=== PATIENT | female | born 1960 | race Caucasian/White ===

== ENCOUNTER 2016-11-05 13:18 | Emergency (ER) | payer MEDICARE ==
--- NOTE | 2016-11-05 14:36 | UC ---
Eye Complaint HPI - HPI Summary HPI Summary: 55 YEAR OLD FEMALE PRESENTS WITH COMPLAINS OF RIGHT EYELID REDNESS/SWELLING. - History of Current Complaint Chief Complaint: UCEye Stated Complaint: EYE COMPLAINT-RED/DISCHARGE Time Seen by Provider: 11/05/16 14:30 Hx Last Menstrual Period: No menese per caregiver Onset/Duration: Sudden Onset - Allergies/Home Medications Allergies/Adverse Reactions: Allergies Allergy/AdvReac Type Severity Reaction Status Date / Time No Known Allergies Allergy Verified 11/05/16 14:24 Home Medications: Home Medications Baclofen TAB* [Lioresal TAB*] 15 mg PO BEDTIME 11/05/16 [History Confirmed 11/05] Chlorhexidine MW 0.12% 473ML* [Peridex Mouth Wash 0.12%] 1 applic PO DAILY 11/05 [History Confirmed 11/05/16] Haloperidol TAB* [Haldol TAB*] 1 tab PO DAILY 11/05/16 [History Confirmed ] Ipratropium 0.5MG/2.5ML NEB* [Atrovent 0.5 MG NEB.SHENG*] 1 neb INH DAILY PRN 06/23 [History Confirmed 11/05/16] Ipratropium [place] (Nasal) [Ipratropium [place]] 1 spray NASAL TID 11/05/16 [ History Confirmed 11/05/16] PMH/Surg Hx/FS Hx/Imm Hx - Surgical History Surgical History: None - Social History Alcohol Use: None Substance Use Type: None Smoking Status (MU): Never Smoked Tobacco - Immunization History Most Recent Influenza Vaccination: unknown Most Recent Tetanus Shot: unknown Most Recent Pneumonia Vaccination: unknown Review of Systems Constitutional: Negative Skin: Negative Eyes: Eye Redness ENT: Negative Respiratory: Negative Cardiovascular: Negative Gastrointestinal: Negative Genitourinary: Negative Motor: Negative Neurovascular: Negative Musculoskeletal: Negative Neurological: Negative Psychological: Negative All Other Systems Reviewed And Are Negative: Yes Physical Exam Triage Information Reviewed: Yes Eyes: Positive: Conjunctiva Inflamed, Other: - RIGHT EYE UPPER/LOWER LID BLEPHARITIS ENT Exam: Normal Dental Exam: Normal Neck exam: Normal Neck: Positive: 1 Respiratory Exam: Normal Cardiovascular Exam: Normal Abdominal Exam: Normal Musculoskeletal Exam: Normal Neurological Exam: Normal Psychological Exam: Normal Skin Exam: Normal Eye Complaint Course/Dx - Differential Dx/Diagnosis Provider Diagnoses: BLEPHARITIS Discharge - Discharge Plan Condition: Stable Disposition: HOME Prescriptions: Erythromycin (Ophth) [Ilotycin] 5 mg OP Q4HR #1 oin Polymyx/Trimethoprim OPTH* [Polytrim OPHTH*] 1 drop RIGHT EYE Q3H #1 btl Patient Education Materials: Blepharitis (ED) Referrals: Marisol Zuluaga MD [Medical Doctor] -
[2016-11-05] MEDS ORDERED: Polymyx/Trimethoprim OPTH* 10 ML BTL RIGHT EYE ONE (14:57)
[2016-11-05] MEDS ORDERED: Erythromycin OPTH OINT* APPLIC OINT RIGHT EYE ONE (14:59)
[2016-11-05 15:13] VITALS: BP 100/56
== END 2016-11-05 15:10 | disposition home or self-care (01) ==
LOC: UCEAST 13:18
DX: H01.002 Unspecified blepharitis right lower eyelid (principal); H01.001 Unspecified blepharitis right upper eyelid
CPT/HCPCS: 99212; A9270-GY; G0463

== ENCOUNTER 2017-06-26 16:17 | Inpatient (IN) | payer MEDICARE, MEDICAID ==
[2017-06-26] MEDS ORDERED: Acetaminophen TAB* 325 MG PO ONE (16:41)
[2017-06-26] MEDS ORDERED: Ibuprofen TAB* 400 MG PO ONE (16:44)
--- OUTSIDE RECORDS SUMMARY | 2017-06-26 16:47 | XMS REPORT ---
:1960 External Reference #:[id number] Author Organization [facility] Address [address] [place] [address] Phone [phone] Care Team Providers Name Role Phone Servando De Paz MD Primary Care Physician Unavailable Payers Type Date Identification Numbers Payment Provider Subscriber Medicare Primary Effective: Policy Number: Medicare - Bswny Sarah David 1983 [id number] Umd PayID: [id number] [address] [place] [address] [facility] Part B Policy Number: [id number] Medicaid After Private Sarah David Group Name: 1 2 Type ins co. code [address] PayID: [id number] [place] [address] Problems Description No Information Family History Date Family Member(s) Problem(s) Comments General Unknown No information available from racker, patient nonverbal. Social History Type Date Description Comments Marital Status Single Lives With [facility] resident Occupation Disabled Allergies, Adverse Reactions, Alerts Date Description Reaction Status Severity Comments 12/08/2016 NKDA active Medications Medication Date Status Form Strength Qnty SIG Indications Ordering Provider Robitussin 12 06/14/ Active Suer 30mg/5ML 178ml Take 10 ml R05 Servando Hour Cough 2018 by mouth [place] Relief every 12 , MD hours for 2 weeks Benzonatate 06/01/ Active Capsules 200mg 45caps 1 by mouth Servando 2018 twice daily Heetlennie for cough MD Murphyzosunny 05/02/ Active Discontinue Servando 2016 Jeffreyzosunny De Paz MD Thick-It 12/07/ Active Powder 1units use as Servando 2017 needed to Baldev no MD liquids Haldol 03/09/ Active discontinue Servando 2016 john De Paz MD Tylenol 12/20/ Active Tablets 325mg 180tab take two R52 Servando 2017 s tablets by [place] mouth three , MD times a day for pain Shower Chair 12/08/ Active To help F98.4 Servando With Belt And 2017 maintain [place] Harness sitting , position despite movement disorder. Amitriptyline 11/16/ Active Tablets 25mg 30tabs 1 tab by K11.7 Servando HCL 2017 mouth every [place] night , Resource 2.0 09/13/ Active Liquid 7110ml 4oz by mouth R62.7 Servando 2017 two times a [place] day Dx: MD r62.7 PA# [id number] Simply Thick 07/27/ Active 180uni Added To Servando Food Thickener 2016 ts Liquids as [place] Needed , Simplythick 07/26/ Active Gel 3Bottl use to Servando 2016 es thicken [place] water and , other liquids prior to consumption. Colace 100MG 07/21/ Active 60unit Take 2 Servando Cap 2016 s Capsules By [place] Mouth Every , MD Day (Constipatio n) Docuprene 03/08/ Active Tablets 100mg 1 tab by Servando 2015 mouth twice [place] a day , Miralax / Active Powder 3350NF 1units 8.5gms mixed Servando with 10-12oz [place] of water MD daily with meals Chlorhexidine / Active Solution 0.12% 1 tab swish Unknown Gluconate 0000 and swallow daily Baclofen / Active Tablets 10mg 1 tab by Unknown 0000 mouth three times a day as needed Ipratropium / Active Solution 0.02% 75ml inhale one Servando [place] 0000 vial four [place] times daily , as needed for shortness of breath Ipratropium 09/29/ Hx Solution 0.03% 30unit 3 sprays Servando [place] 2016 - s into mouth [place] 12/05/ three times , 2017 daily with meals. Haldol 0.5MG 05/29/ Hx 30unit Take One Servando Tab 2017 - s Tablet By Baldev 03/09/ Mouth MD Soraida 2016 Day (Movement Disorder) Haloperidol / Hx Tablets 0.5mg 1 tab by Unknown 0000 - mouth daily 2016 Alprazolam / Hx Tablets 1mg 30tabs 1 tab by Servando 0000 - mouth prior Baldev 05/02/ to imaging MD 2016 studies or prior to dental appointments . Immunizations CPT Code Status Date Vaccine Lot # [id number] Given 03/09/2017 Tdap (Adacel) [id number] 71743 Given 02/15/2017 Influenza Virus Vaccine, Quadrivalent, 3 Yr > Quad, Preserv Free 01810 Given 02/16/2016 Influenza Virus Vaccine, Quadrivalent, 3 Yr > Quad, Preserv Free 99747 Given 10/25/2009 Hep B Vaccine Adult, 3 Dose age >20 yrs 51708 Given 07/15/2009 Hep B Vaccine Adult, 3 Dose age >20 yrs 19111 Given 02/22/2009 Hep B Vaccine Adult, 3 Dose age >20 yrs 58800 Given 12/31/1967 Inactivated Polio Vaccine, Injectable (Ipol) 86210 Given 12/31/1967 DTaP (Daptacel) 22288 Given 11/23/1962 Inactivated Polio Vaccine, Injectable (Ipol) 73756 Given 08/25/1962 Inactivated Polio Vaccine, Injectable (Ipol) 29712 Given 07/28/1962 Inactivated Polio Vaccine, Injectable (Ipol) Vital Signs Date Vital Result Comment 06/14/2017 Heart Rate 88 /min Body Temperature 97.1 F Respiratory Rate 15 /min O2 % BldC Oximetry 96 % 06/01/2017 Heart Rate 100 /min Body Temperature 99.0 F O2 % BldC Oximetry 93 % 03/09/2017 Weight 79.00 lb Weight in kg's 35.834 BP Systolic 111 mmHg BP Diastolic 70 mmHg Heart Rate 130 /min Body Temperature 97.6 F 12/20/2016 Heart Rate 88 /min Body Temperature 97.4 F Respiratory Rate 20 /min 12/08/2016 BP Systolic 114 mmHg BP Diastolic 72 mmHg Heart Rate 92 /min Body Temperature 97.0 F Respiratory Rate 20 /min 11/16/2016 Weight 80.00 lb Weight in kg's 36.288 BP Systolic 93 mmHg BP Diastolic 61 mmHg Heart Rate 88 /min Body Temperature 97.8 F O2 % BldC Oximetry 99 % 03/08/2016 Body Temperature 97.2 F Results Test Date Test Result H/L Range Note Laboratory test finding 04/18/2017 Cytology SEE RESULT BELOW 1 Lipid Profile 03/09/2017 Triglycerides 239 mg/dL 2 (Trig/Chol/HDL) Cholesterol 276 mg/dL 3 HDL Cholesterol 45.4 mg/dL 4 LDL Cholesterol 183 mg/dL 5 Laboratory test finding 03/09/2017 Hepatitis C Antibody Nonreactive Nonreactive 6 HIV 1/2 AB Evaluation 03/09/2017 HIV 1 2 Antibody Nonreactive Nonreactive 7 Laboratory test finding 03/09/2017 Hemoglobin A1c (Glyco 5.1 % 4.0-5.6 8 HGB) CBC Auto Diff 03/09/2017 White Blood Count 8.4 10^3/uL 3.5-10.8 Red Blood Count 4.78 10^6/uL 4.0-5.4 Hemoglobin 14.1 g/dL 12.0-16.0 Hematocrit 44 % 35-47 Mean Corpuscular Volume 91 fL 80-97 Mean Corpuscular Hemoglobin 30 pg 27-31 Mean Corpuscular HGB Conc 32 g/dL 31-36 Red Cell Distribution Width 15 % 10.5-15 Platelet Count 408 10^3/uL 150-450 Mean Platelet Volume 7 um3 Low 7.4-10.4 Abs Neutrophils 4.3 10^3/uL 1.5-7.7 Abs Lymphocytes 3.4 10^3/uL 1.0-4.8 Abs Monocytes 0.5 10^3/uL 0-0.8 Abs Eosinophils 0.1 10^3/uL 0-0.6 Abs Basophils 0 10^3/uL 0-0.2 Abs Nucleated RBC 0.01 10^3/uL Granulocyte % 51.2 % 38-83 Lymphocyte % 40.6 % 25-47 Monocyte % 6.3 % 1-9 Eosinophil % 1.3 % 0-6 Basophil % 0.6 % 0-2 Nucleated Red Blood Cells % 0.1 Comp Metabolic Panel 03/09/2017 Sodium 136 mmol/L 133-145 Chloride 100 mmol/L Low 101-111 Co2 Carbon Dioxide 32 mmol/L 22-32 Glucose 90 mg/dL 70-100 Blood Urea Nitrogen 25 mg/dL High 6-24 Creatinine 0.80 mg/dL 0.51-0.95 BUN/Creatinine Ratio 31.3 High 8-20 Calcium 10.0 mg/dL 8.6-10.3 Total Protein 7.0 g/dL 6.4-8.9 Albumin 4.1 g/dL 3.2-5.2 Globulin 2.9 g/dL 2-4 Albumin/Globulin Ratio 1.4 1-3 Total Bilirubin 0.40 mg/dL 0.2-1.0 Alkaline Phosphatase 89 U/L 34-104 Alt 42 U/L 7-52 Ast 20 U/L 13-39 Egfr Non- 74.5 >60 Egfr 95.8 >60 9 Potassium 5.4 mmol/L High 3.5-5.0 Anion Gap 4 mmol/L 2-11 Laboratory test finding 03/09/2017 TSH (Thyroid Stim 2.20 mcIU/mL 0.34- 5.60 10 Horm) 1 SEE RESULT BELOW Name: SARAH DAVID : [address]: Niharika Walter Acct: [id number] Unit: [id number] AGE: 56 Location: [facility] Re04/18/17 SEX: F Status: REG REF SPEC: [id number] DAMINO: 04/18/17-[address]: Niharika Walter REQ: [id number] RECD: 04/19/17-1222 STATUS: KD FLORES DR: Servando De Paz MD _ ORDERED: TP IMAGE ANAL, HPV/Thin Prep COMMENTS: [id number] Negative for Intraepithelial lesion or Malignancy A. Ectocervical/Endocervical Specimen Adequacy: Satisfactory of evaluation Transformation zone component identified Predominance of white blood cells Patient Information: HPV: High risk HPV RNA testing regardless of pap results. Actual Specimen Date: 04/18/17 LMP If Unknown: unknown Spec Date if unknown: unknown Post Menopausal?: Y Date Time Test Result Flag (u) Normal Range 04/18/17 1420 @ HPV RNA Negative Negative @ @ The high-risk HPV types detected by the assay include: 16, @ 18, 31, 33, 35, 39, 45, 51, 52, 56, 58, 59, 66, and 68. Signed (signature on file) ISSAC Hernadez(ASCP) 04/20 1246 This Pap test was evaluated with the assistance of the ThinPrep Test Imaging System. Due to cytologic findings at the infrastructure administrator microscope, comprehensive manual rescreening by a Machine Shop Instructor may be required. The Pap Smear is a screening test designed to aid in the detection of premalignant and malignant conditions of the uterine cervix. It is not a diagnostic procedure and should not be used as the sole means of detecting cervical cancer. Both false- positive and false- negative reports do occur. Depending on your risk status, a Pap smear should be obtained and evaluated every 1-3 years. END OF REPORT * ML=Testing performed at [facility] DEPARTMENT OF PATHOLOGY, [address] [place] [address] Armando Lopez M.D. Director [facility] # [id number] 2 Desirable: <150 Borderline High: 150-199 High: 200-499 Very High: >500 3 Desirable: <200 Borderline High: 200-239 High: >239 4 Low: <40 Desirable: 40-60 High: >60 5 Desirable: <100 Near Optimal: 100-129 Borderline High: 130-159 High: 160-189 Very High: >189 6 [id number] It is recognized that currently available assays for the detection of antibodies to HIV-1 and/or HIV-2 may not detect all infected individuals. HIV antibodies may be undetectable in some stages of the infection and in some clinical conditions. The performance of this assay has not been established for populations of infants or children. Assayed by Chemiluminescence Microparticle Immunoassay on the Siemens Advia Centaur CP. Values obtained with different methods or kits cannot be used interchangeably.The diagnostic specificity of the ADVIA Centaur 1/O/2 Enhanced assay in the low risk population was 99.90% (6052/6058) with a 95% confidence interval of 99.78 to 99.96%. 8 Therapeutic target for the treatment of diabetes mellitus patients is <7% HBA1C, and in selective patients <6.0%. Please refer to [place] Diabetes Association diabetic care guidelines for further information. 9 Because ethnic data is not always readily available, this report includes an eGFR for both -Americans and non- Americans. The National Kidney Disease Education Program (NKDEP) does not endorse the use of the MDRD equation for patients that are not between the ages of 18 and 70, are , have extremes of body size, muscle mass, or nutritional status, or are non- or non-. According to the National Kidney Foundation, irrespective of diagnosis, the stage of the disease is based on the level of kidney function: Stage Description GFR(mL/min/1.73 m(2)) 1 Kidney damage with normal or decreased GFR 90 2 Kidney damage with mild decrease in GFR 60-89 3 Moderate decrease in GFR 30-59 4 Severe decrease in GFR 15-29 5 Kidney failure <15 (or dialysis) 10 [id number] Procedures Description No Information Encounters Type Date Location Provider CPT E/M Dx Office Visit 06/01/2017 1:00p [place] [address] J18.9 Office Visit 03/09/2017 1:00p Main Office Servando De Paz MD G0438 Z00.8 F98.4 Z12.31 Z12.4 Z12.11 Z23 Office Visit 12/20/2016 9:15a [place] [address] R52 F98.4 Office Visit 12/08/2016 11:30a [place] [address] F98.4 S00.03xA Office Visit 11/16/2016 10:15a [place] [address] K11.7 H01.001 Office Visit 03/08/2016 3:45p [place] [address] F98.4 L89.151 Plan of Care 06/14/2017 - BIANCA Whelan CoughNew Medication:Robitussin 12 Hour Cough Relief 30 mg/5MLComments:Main complaint seems to be cough, gradually improving. They were wondering about a nebulizer, but there does not seem to be any wheezing or asthma history to suggest this would be beneficial. We will try increasing her cough suppressant regimen.
--- OUTSIDE RECORDS SUMMARY | 2017-06-26 16:47 | XMS REPORT ---
:1960 External Reference #:[id number] Author Organization [facility] Address [address] [place] [address] Phone [phone] Care Team Providers Name Role Phone Servando De Paz MD Primary Care Physician Unavailable Payers Type Date Identification Numbers Payment Provider Subscriber Medicare Primary Effective: Policy Number: Medicare - Bswny Sarah David 1983 [id number] Umd PayID: [id number] [address] [place] [address] [facility] Part B Policy Number: [id number] Medicaid After Private Sarah David Group Name: 1 2 Type ins co. code [address]/ [address] PayID: [id number] [place] [address] Problems Description No Information Family History Date Family Member(s) Problem(s) Comments General Unknown No information available from racker, patient nonverbal. Social History Type Date Description Comments Marital Status Single Lives With [facility] resident Occupation Disabled Allergies, Adverse Reactions, Alerts Date Description Reaction Status Severity Comments 12/08/2016 NKDA active Medications Medication Date Status Form Strength Qnty SIG Indications Ordering Provider Benzonatate 06/01/ Active Capsules 200mg 45caps 1 by mouth Servando 2018 twice daily [place] for cough MD Harrison 05/02/ Active Discontinue Servando 2017 Christy De Paz MD Thick-It 04/12/ Active Powder 1units use as Servando 2017 needed to Baldev no MD liquids Haldol 03/09/ Active discontinue Servando 2017 john De Paz MD Tylenol 12/20/ Active [...] 2017 two times a [place] day Dx: , r62.7 PA# [id number] Simply Thick 07/27/ Active 180uni Added To Servando Food Thickener 2016 ts Liquids as [place] Needed , MD Brownthick 07/26/ Active Gel 3Bottl use to Servando 2017 es thicken [place] water and , other liquids prior to consumption. Colace 100MG 07/21/ Active 60unit Take 2 Servando Cap 2016 s Capsules By [place] Mouth Every , Day (Constipatio n) Docuprene 03/08/ Active Tablets 100mg 1 tab by Servando 2015 mouth twice [place] a day , Miralax / Active Powder 3350NF 1units 8.5gms mixed Servando with 10-12oz [place] of water , daily with meals Chlorhexidine / Active Solution 0.12% 1 tab swish Unknown Gluconate 0000 and swallow daily Baclofen / Active Tablets 10mg 1 tab by Unknown 0000 mouth three times a day as needed Ipratropium / Active Solution 0.02% 75ml inhale one Servando [place] 0000 vial four [place] times daily , as needed for shortness of breath Ipratropium 09/29/ Hx Solution 0.03% 30unit 3 sprays Servando [place] 2016 - s into mouth [place] 12/05/ three times MD 2016 daily with meals. Haldol 0.5MG 05/29/ Hx 30unit Take One Servando Tab 2017 - s Tablet By [place] 03/09/ Mouth Every , 2016 Day (Movement Disorder) Haloperidol / Hx Tablets 0.5mg 1 tab by Unknown 0000 - mouth daily 2016 Alprazolam / Hx Tablets 1mg 30tabs 1 tab by Servando 0000 - mouth prior [place] 05/02/ to MD [place] 2016 studies or prior to dental appointments . Immunizations CPT Code Status Date Vaccine Lot # [id number] Given 03/09/2017 Tdap (Adacel) [id number] 62988 Given 02/15/2017 Influenza Virus Vaccine, Quadrivalent, 3 Yr > Quad, Preserv Free 80118 Given 02/16/2016 Influenza Virus Vaccine, Quadrivalent, 3 Yr > Quad, Preserv Free 26825 Given 10/25/2009 Hep B Vaccine Adult, 3 Dose age >20 yrs 28423 Given 07/15/2009 Hep B Vaccine Adult, 3 Dose age >20 yrs 45359 Given 02/22/2009 Hep B Vaccine Adult, 3 Dose age >20 yrs 87077 Given 12/31/1967 Inactivated Polio Vaccine, Injectable (Ipol) 61179 Given 12/31/1967 DTaP (Daptacel) 55768 Given 11/23/1962 Inactivated Polio Vaccine, Injectable (Ipol) 96070 Given 08/25/1962 Inactivated Polio Vaccine, Injectable (Ipol) 29117 Given 07/28/1962 Inactivated Polio Vaccine, Injectable (Ipol) Vital Signs Date Vital Result Comment 06/01/2017 Heart Rate 100 /min Body Temperature [...] : [address]: Niharika Walter Acct: [id number] Unit: [id number] AGE: 56 Location: [facility] Re04/18/17 SEX: F Status: REG REF SPEC: [id number] DAMION: 04/18/17-[address]: Niharika Walter REQ: [id number] RECD: 04/19/17-1222 STATUS: KD FLORES DR: Servando De Paz MD _ ORDERED: TP IMAGE ANAL, HPV/Thin Prep COMMENTS: [id number] Negative for Intraepithelial lesion or Malignancy A. [...] System. Due to cytologic findings at the practice assistant microscope, comprehensive manual rescreening by a Oracle Programmer Analyst may be required. The Pap Smear is [...] END OF REPORT * ML=Testing performed at Main Lab DEPARTMENT OF PATHOLOGY, [address] [place] [address] Armando Lopez M.D. Director [facility] # [id number] 2 Desirable: <150 Borderline High: 150-199 High: 200-499 Very High: >500 3 Desirable: <200 Borderline High: 200-239 High: >239 4 Low: <40 Desirable: 40-60 High: >60 5 Desirable: <100 Near Optimal: 100-129 Borderline High: 130-159 High: 160-189 Very High: >189 6 [id number] It is recognized that currently available [...] in selective patients <6.0%. Please refer to [place] Diabetes Association diabetic care guidelines for further [...] 5 Kidney failure <15 (or dialysis) 10 [id number] Procedures Description No Information Encounters Type Date Location Provider CPT E/M Dx Office Visit 06/01/2017 1:00p [place] [address] J18.9 Office Visit 03/09/2017 1:00p Main Office Servando De Paz MD G0438 Z00.8 F98.4 Z12.31 Z12.4 Z12.11 Z23 Office Visit 12/20/2016 9:15a [place] [address] R52 F98.4 Office Visit 12/08/2016 11:30a [place] [address] F98.4 S00.03xA Office Visit 11/16/2016 10:15a [place] [address] K11.7 H01.001 Office Visit 03/08/2016 3:45p [place] [address] F98.4 L89.151 Plan of Care 06/01/2017 - Servando De Paz MDJ18.9 Pneumonia, unspecified organismNew Xrays: Chest, 2 Views(PA & Lateral)Comments:-Plan chest xray. Treatment based on results.-Tessalon Perles for cough. -Continue to encourage fluids, rest, Tylenol as needed for discomfort.-Return to clinic if she develops fever or any new/worsening symptoms.
--- NOTE | 2017-06-26 17:44 | RAD ---
INDICATION: Cough and fever COMPARISON: None TECHNIQUE: AP seated and seated lateral views were obtained. FINDINGS: Bones/Soft Tissues: There are no acute bony findings. Cardiomediastinal: The cardiomediastinal silhouette is normal. Lungs: There is mild linear change in the right middle lobe which is likely atelectasis. The lungs are otherwise clear. Pleura: There are no pleural effusions. Other: None IMPRESSION: SUSPECT RIGHT MIDDLE LOBE ATELECTASIS. SUGGEST FOLLOW-UP INDICATED.
[2017-06-26] MEDS ORDERED: Oseltamivir SUSP 75 MG dose* 75 MG/12.5 ML ORAL.SYRIN PO ONE (18:07)
[2017-06-26] MEDS ORDERED: NS 0.9% 1000 ML* 2,000 ML IV ONE (18:16)
[2017-06-26 18:37] LABS: Hematocrit 36 % (35-47); Hemoglobin 12.4 g/dl (12.0-16.0); Mean Corpuscular HGB Conc 34 g/dl (31-36); Mean Corpuscular Hemoglobin 30 pg (27-31); Mean Corpuscular Volume 89 fL (80-97); Mean Platelet Volume 7 um3 (7.4-10.4); Platelet Count 250 10^3/ul (150-450); Red Blood Count 4.08 10^6/ul (4.0-5.4); Red Cell Distribution Width 14 % (10.5-15); White Blood Count 9.4 10^3/ul (3.5-10.8)
[2017-06-26 18:43] LABS: INR 1.04 (0.77-1.02)
[2017-06-26 18:49] LABS: ABS Basophils 0 10^3/ul (0-0.2); ABS Eosinophils 0 10^3/ul (0-0.6); ABS Lymphocytes 0.6 10^3/ul (1.0-4.8); ABS Monocytes 0.5 10^3/ul (0-0.8); ABS Neutrophils 8.2 10^3/ul (1.5-7.7); ABS Nucleated RBC 0 10^3/ul; Eosinophil % 0.3 % (0-6); Lymphocyte % 6.5 % (25-47); Nucleated Red Blood Cells % 0.1
[2017-06-26 19:07] LABS: EGFR Non-African American 72.4 (>60)
[2017-06-26] MEDS ORDERED: Ondansetron INJ* 2 MG/ML VIAL IV PRN (19:22)
[2017-06-26] MEDS: NS 0.9% 1000 ML* 1,000 ML IV SCH (21:24)
--- NOTE | 2017-06-26 22:17 | HP ---
CC: Primary Care Provider, Servando De Paz MD * HISTORY AND PHYSICAL: DATE OF ADMISSION: 06/26/17 CHIEF COMPLAINT: Cough, increased shaking, and fever. HISTORY OF PRESENT ILLNESS: Ms. Cleveland is a 56-year-old female who has a history of severe intellectual developmental delay, who is nonverbal and nonambulatory, who presents to the emergency room with cough, fever, and shaking. The patient herself was unable to provide any history. The aide that is in the room has not been with her all day, but was informed that she was noted to be shaking more than normal. She also was found to have a fever today. There has been a tremendous amount of flu at her skilled nursing recently. The patient was brought to the emergency room for evaluation. In addition to the fever, she was also noted to be hypoxic with O2 saturations in the 80s at her skilled nursing. PAST MEDICAL HISTORY: 1. Severe intellectual developmental delay. 2. Movement disorder. 3. Constipation. 4. Cataract extraction. MEDICATIONS: 1. MiraLAX 17 g p.o. daily. 2. Baclofen 10 mg p.o. morning and afternoon, 15 mg at bedtime. 3. Amitriptyline 25 mg p.o. q.h.s. 4. Amantadine 5 mL (50 mg) p.o. b.i.d. 5. Tylenol 650 mg p.o. t.i.d. 6. Tessalon 200 mg p.o. b.i.d. 7. Resource 2.0 four ounces p.o. b.i.d. 8. Chlorhexidine mouthwash 5 mL swish and spit daily. 9. Colace 200 mg p.o. daily. ALLERGIES: No known drug allergies. FAMILY HISTORY: Unobtainable as the patient is nonverbal. SOCIAL HISTORY: The patient is a resident of the [facility]. She does not smoke. She does not drink alcohol. REVIEW OF SYSTEMS: Unobtainable. PHYSICAL EXAMINATION GENERAL: The patient is a well-developed, petite, middle-aged female, seen sitting up in the stretcher, appearing to have frequent jerky movements and frequent moist cough, but in no acute distress. VITAL SIGNS: Blood pressure 127/86; pulse 102; respirations 21; temp 100.5, currently T-max 101.3; O2 sat 89% on room air. HEENT: Pupils are equal and round. Extraocular muscles intact. Oropharynx is clear. Oral mucosa is moist. NECK: There is no submandibular, cervical, or supraclavicular adenopathy. Thyroid is not enlarged. No thyroid nodules noted. PULMONARY: The patient does not cooperate fully with exam, but breath sounds sound clear. I do not appreciate any crackles in any of the lung ferrera. CARDIAC: Normal S1, S2. Heart rate is tachycardic, but regular. There is no lower extremity edema. ABDOMEN: Bowel sounds present. Abdomen is soft, nontender, nondistended. MUSCULOSKELETAL: There is no cyanosis or clubbing of the digits. There is full active range of motion of all 4 extremities. NEUROLOGIC: Unable to be performed as the patient does not cooperate with the exam. PSYCH: The patient is alert. I am unable to determine if she is oriented as she is nonverbal. SKIN: Warm and dry. There are no rashes. DIAGNOSTIC STUDIES/LAB DATA: WBC 9.4, hemoglobin 12.4, hematocrit 36, platelets 250. INR 1.04. Sodium 139, potassium 4.3, chloride 105, CO2 28, BUN 30, creatinine 0.82, glucose 135, lactic acid 1.5, calcium 9.1. Bilirubin 0.3, AST 26, ALT 61, alk phos 79. Troponin 0. Albumin 3.8. Influenza A positive. Chest x-ray: Suspect right middle lobe atelectasis. ASSESSMENT AND PLAN: Ms. Cleveland is a 56-year-old female with a history of severe intellectual developmental delay, movement disorder, and constipation, who presents to the emergency room with fever, cough, and increased shaking. 1. Influenza A. The patient is noted to be positive for influenza A. The staff member that is at her bedside notes that there has been significant amount of influenza diagnosed at the [facility]. The patient will be started on Tamiflu 75 mg p.o. twice daily. The patient has also been hypoxic. We will monitor her O2 sats carefully. On chest x-ray, the patient has possibly atelectasis of the right middle lobe; however, given her very moist cough, I will start the patient on Levaquin 500 mg IV daily. Additionally, a procalcitonin level will be obtained to help determine if this is bacterial pneumonia or atelectasis. 2. Cough. This is most likely secondary to influenza/possible pneumonia; however, the aide at the bedside does note that the patient has been coughing more with eating recently. We will go ahead and get a swallow evaluation. For now, she will be n.p.o. 3. Intellectual developmental delay/movement disorder. The patient will continue on her usual dose of amantadine and baclofen. 4. Constipation. The patient will continue on MiraLAX and Colace as prescribed at home. 5. DVT prophylaxis. According to the Adult Thrombosis Prophylaxis Risk Factor Assessment Guide, the patient has a total risk factor score of 1 making her low risk. Heparin 5000 units subcutaneous q.12 hours will be utilized as DVT prophylaxis. 6. Code status is full. The patient's surrogate decision maker is not clear at this time. TIME SPENT: Fifty minutes was spent admitting this patient. [id number]/[facility]PS #: [id number] MTDD
[2017-06-26] MEDS: Levofloxacin 500 MG IVPREMIX(* 500 MG/100 ML BAG IVPB SCH (22:20)
[2017-06-26] MEDS: Acetaminophen TAB* 325 MG PO SCH (22:20)
[2017-06-26] MEDS: Amitriptyline TAB* 25 MG PO SCH (22:20)
[2017-06-26] MEDS: Baclofen TAB* 10 MG PO SCH (22:21)
[2017-06-26] MEDS: Heparin VIAL(*) 5000 UNITS/ML VIAL (FIVE THOUSAND) SUBCUT SCH (22:34)
[2017-06-26] MEDS: Amantadine LIQ* 50 MG/5 ML UDC PO SCH (23:34)
[2017-06-27] MEDS: Oseltamivir SUSP 75 MG dose* 75 MG/12.5 ML ORAL.SYRIN PO SCH ×2 (05:23→18:17)
[2017-06-27] MEDS: Acetaminophen TAB* 325 MG PO SCH ×3 (09:46→20:49)
[2017-06-27] MEDS: Baclofen TAB* 10 MG PO SCH ×3 (09:46→20:50)
[2017-06-27] MEDS: Heparin VIAL(*) 5000 UNITS/ML VIAL (FIVE THOUSAND) SUBCUT SCH ×2 (09:47→20:50)
[2017-06-27] MEDS: Amantadine LIQ* 50 MG/5 ML UDC PO SCH ×2 (09:51→22:34)
[2017-06-27] MEDS: Docusate CAP* 100 MG PO SCH (09:54)
[2017-06-27] MEDS: Polyethylene Glycol 3350* 17 GM PACKET PO SCH (09:55)
--- NOTE | 2017-06-27 15:38 | PN ---
Subjective Date of Service: 06/27/17 Interval History: Pt is nonverbal unable to make needs known but [facility] GARY Regan is at bedside. Pt unable to swallow much of her lunch, most ended up on her and she is agitated, squirming in hospital bed. Objective Active Medications: Acetaminophen (Tylenol Tab*) 650 mg PO TID [facility] Last Admin: 06/27/17 14:49 Dose: 650 mg Amantadine HCl (Symmetrel Liq*) 50 mg PO BID [facility] Last Admin: 06/27/17 09:51 Dose: 50 mg Amitriptyline HCl (Elavil Tab*) 25 mg PO BEDTIME [facility] Last Admin: 06/26/17 22:20 Dose: 25 mg Baclofen (Lioresal Tab*) 10 mg PO 0900,1600 [facility] Last Admin: 06/27/17 14:49 Dose: 10 mg Baclofen (Lioresal Tab*) 15 mg PO BEDTIME [facility] Last Admin: 06/26/17 22:21 Dose: 15 mg Docusate Sodium (Colace Cap*) 200 mg PO DAILY [facility] Last Admin: 06/27/17 09:54 Dose: Not Given Heparin Sodium (Porcine) (Heparin Vial(*)) 5,000 units SUBCUT Q12HR [facility] Last Admin: 06/27/17 09:47 Dose: 5,000 units Sodium Chloride (Ns 0.9% 1000 Ml*) 1,000 mls @ 75 mls/hr IV PER RATE [facility] Last Admin: 06/26/17 21:24 Dose: 75 mls/hr Levofloxacin/Dextrose (Levaquin 500 Mg Ivpremix(*)) 500 mg in 100 mls @ 100 mls /hr IVPB Q24H [facility] Last Admin: 06/26/17 22:20 Dose: 100 mls/hr Ondansetron HCl (Zofran Inj*) 4 mg IV Q6H PRN PRN Reason: NAUSEA Oseltamivir Phosphate (Tamiflu Susp 75 Mg Dose*) 75 mg PO 0600,1800 [facility] Last Admin: 06/27/17 05:23 Dose: 75 mg Polyethylene Glycol/Electrolytes (Miralax*) 17 gm PO DAILY [facility] Last Admin: 06/27/17 09:55 Dose: Not Given Vital Signs - 8 hr 06/27/17 06/27/17 07:34 07:47 Temperature 98.9 F Pulse Rate 111 Respiratory 17 18 Rate Blood Pressure 132/39 (mmHg) O2 Sat by Pulse 97 Oximetry Oxygen Devices in Use Now: None Appearance: Agitated, squirming in bed. nonverbal. Eyes: No Scleral Icterus, PERRLA Respiratory: - - limited exam not taking deep breaths, no gross rales or wheezing. Cardiovascular: - - limited exam given won't sit still Abdominal: NL Sounds; No Tenderness; No Distention, No Hepatosplenomegaly Extremities: No Edema Neurological: - - nonverbal. ISRA[place] Nutrition: Taking PO's Result Diagrams: 06/26/17 17:10 06/26/17 17:10 Additional Lab and Data: Laboratory Results - last 24 hr 06/26/17 06/26/17 06/26/17 17:10 17:10 17:10 WBC 9.4 RBC 4.08 Hgb 12.4 Hct 36 MCV 89 MCH 30 MCHC 34 RDW 14 Plt Count 250 MPV 7 L Neut % (Auto) 87.4 H Lymph % (Auto) 6.5 L Swain % (Auto) 5.6 Eos % (Auto) 0.3 Baso % (Auto) 0.2 Absolute Neuts (auto) 8.2 H Absolute Lymphs (auto) 0.6 L Absolute Monos (auto) 0.5 Absolute Eos (auto) 0 Absolute Basos (auto) 0 Absolute Nucleated RBC 0 Nucleated RBC % 0.1 INR (Anticoag Therapy) 1.04 H APTT 30.1 Sodium 139 Potassium 4.3 Chloride 105 Carbon Dioxide 28 Anion Gap 6 BUN 30 H Creatinine 0.82 Est GFR ( Amer) 93.1 Est GFR (Non-Af Amer) 72.4 BUN/Creatinine Ratio 36.6 H Glucose 135 H Lactic Acid Calcium 9.1 Total Bilirubin 0.30 AST 26 ALT 61 H Alkaline Phosphatase 79 Troponin I 0.00 Total Protein 6.7 Albumin 3.8 Globulin 2.9 Albumin/Globulin Ratio 1.3 Procalcitonin Influenza A (Rapid) Influenza B (Rapid) 06/26/17 06/26/17 06/26/17 17:10 17:10 17:43 WBC RBC Hgb Hct MCV MCH MCHC RDW Plt Count MPV Neut % (Auto) Lymph % (Auto) Swain % (Auto) Eos % (Auto) Baso % (Auto) Absolute Neuts (auto) Absolute Lymphs (auto) Absolute Monos (auto) Absolute Eos (auto) Absolute Basos (auto) Absolute Nucleated RBC Nucleated RBC % INR (Anticoag Therapy) APTT Sodium Potassium Chloride Carbon Dioxide Anion Gap BUN Creatinine Est GFR ( Amer) Est GFR (Non-Af Amer) BUN/Creatinine Ratio Glucose Lactic Acid 1.5 Calcium Total Bilirubin AST ALT Alkaline Phosphatase Troponin I Total Protein Albumin Globulin Albumin/Globulin Ratio Procalcitonin 0.7 H Influenza A (Rapid) Positive H Influenza B (Rapid) Negative Microbiology and Other Data: Microbiology 06/26/17 17:40 Nasal Nasal Screen MRSA (PCR)(ANTONIO) - Final Mrsa Detected 06/26/17 17:40 Nasal Influenza Types A,B Antigen (ANTONIO) - Final Specimen received for Influenza A/B Molecular testing Assess/Plan/Problems-Billing Assessment: 56 yo female resident of [facility] PMH severe developmental delay, nonverbal p/w hypoxia, fever, cough. Influenza A + pneumonia (right middle lobe) . SIRS. On Levaquin. - Patient Problems (1) Influenza A Current Visit: Yes Status: Acute Code(s): J10.1 - FLU DUE TO OTH IDENT INFLUENZA VIRUS W OTH RESP MANIFEST SNOMED Code(s): 799064713 Comment: Continue tamiflu x 5 days. (2) Pneumonia Current Visit: Yes Status: Acute Code(s): J18.9 - PNEUMONIA, UNSPECIFIED ORGANISM SNOMED Code(s): 545925714 Comment: Right middle lobe consolidation. Urine Strep Pna & Legionella Antigen MRSA nares was positive. Pt fevers improving on levaquin. Will continue that but low threshold to add vancomycin if worsening. Does have risk factor given living environement (9 other [facility] residents living in the house). (3) MRSA nasal colonization Current Visit: Yes Status: Acute Code(s): Z22.322 - CARRIER OR SUSPECTED CARRIER OF METHICILLIN RESIS STAPH SNOMED Code(s): 810423578 Comment: contact isolation. (4) Sepsis Current Visit: No Status: Acute Priority: High Onset Date: 06/26/14 Comment: Meets SIRS & Sepsis II Criteria (Fever, Tachycardia to 130s, Tachypenia to 27), suspected source Influenza A, pneumonia IVF abx as above. (5) Mental retardation Current Visit: No Status: Chronic Code(s): F79 - UNSPECIFIED INTELLECTUAL DISABILITIES SNOMED Code(s): 215458524 Comment: bedside swallow eval recommended same as home diet: puree & pudding thick (6) Tachycardia Current Visit: Yes Status: Acute Code(s): R00.0 - TACHYCARDIA, UNSPECIFIED SNOMED Code(s): 4165054 Comment: Will get EKG to rule out Afib, difficult exam as won't sit still. Status and Disposition: medicine inpatient.
[2017-06-27] MEDS: NS 0.9% 1000 ML* 1,000 ML IV SCH (18:02)
[2017-06-27] MEDS: Amitriptyline TAB* 25 MG PO SCH (20:49)
[2017-06-27] MEDS: Levofloxacin 500 MG IVPREMIX(* 500 MG/100 ML BAG IVPB SCH (20:52)
[2017-06-28] MEDS: Oseltamivir SUSP 75 MG dose* 75 MG/12.5 ML ORAL.SYRIN PO SCH (05:16)
[2017-06-28] MEDS: Acetaminophen TAB* 325 MG PO SCH (08:38)
[2017-06-28] MEDS: Amantadine LIQ* 50 MG/5 ML UDC PO SCH (08:40)
[2017-06-28] MEDS: Baclofen TAB* 10 MG PO SCH (08:40)
[2017-06-28] MEDS: Docusate CAP* 100 MG PO SCH (08:40)
[2017-06-28] MEDS: Polyethylene Glycol 3350* 17 GM PACKET PO SCH (08:41)
[2017-06-28] MEDS: Heparin VIAL(*) 5000 UNITS/ML VIAL (FIVE THOUSAND) SUBCUT SCH (08:41)
[2017-06-28] MEDS: NS 0.9% 1000 ML* 1,000 ML IV SCH (08:44)
[2017-06-28 10:54] LABS: ABS Basophils 0 10^3/ul (0-0.2); ABS Eosinophils 0.1 10^3/ul (0-0.6); ABS Monocytes 0.4 10^3/ul (0-0.8); ABS Nucleated RBC 0 10^3/ul; Hematocrit 37 % (35-47); Hemoglobin 11.7 g/dl (12.0-16.0); Lymphocyte % 31.2 % (25-47); Mean Corpuscular HGB Conc 31 g/dl (31-36); Mean Corpuscular Hemoglobin 29 pg (27-31); Mean Corpuscular Volume 94 fL (80-97); Mean Platelet Volume 7 um3 (7.4-10.4); Nucleated Red Blood Cells % 0; Platelet Count 270 10^3/ul (150-450); Red Blood Count 3.98 10^6/ul (4.0-5.4); Red Cell Distribution Width 14 % (10.5-15); White Blood Count 6.5 10^3/ul (3.5-10.8)
[2017-06-28 11:38] LABS: EGFR Non-African American 128.1 (>60)
[2017-06-28 12:18] VITALS: BP 99/66
--- NOTE | 2017-06-29 11:21 | DS ---
DISCHARGE SUMMARY: DATE OF ADMISSION: 06/26/17 DATE OF DISCHARGE: 06/28/17 ADMITTING PROVIDER: Cris Kimbrough DO PRIMARY CARE PROVIDER: Servando De Paz MD ATTENDING PHYSICIAN: Josef Shea MD CHIEF COMPLAINT: Cough, fevers, hypoxia, increased shakiness. PRINCIPAL DIAGNOSES: Influenza A; potential community-acquired pneumonia. HISTORY OF PRESENT ILLNESS AND HOSPITAL COURSE: Ms. Sarah Cleveland is a 56-year- old female with past medical history of severe intellectual developmental delay , who at baseline is nonverbal, nonambulatory and with movement disorder, presented from her residence at the [facility] with cough, fever, shakiness and she was unable to provide any history given her nonverbal baseline, but the aides reported that she had been shaking more than her usual and was found to have a fever. She lives with 9 other residence at the [facility] and there has reported been numerous residents with the flu. She was noted to be hypoxic in the 80s at [facility] [employer] [place] [facility] was found to have SIRS with fever, tachycardia, hypoxia, ulcers and was found to be influenza A positive. She had a chest x-ray, which showed some right middle lobe question of atelectasis and given her moist cough and sepsis, she was started on Levaquin 500 mg IV daily. Procalcitonin level was obtained, was noted to be positive at 0.7. She was unable to provide any sputum sample. Blood cultures were negative x1 day. She defervesced, T initial was 101.3 and heart rate initially were in the 110s, now improved to 80s. She is no longer hypoxic. Blood pressure has never dip below 109/60. Of note, she did have a MRSA nares positive PCR test, but improved of any Gram positive coverage, suspect this is a colonization; however, if she were to decompensate notably would put her at lower threshold for starting empiric vancomycin for MRSA pneumonia in the future. She did have a left shift on presentation. Neutrophils 87.4%, improved by hospital day #3. White count initially 9.4 and 6.5 on discharge. She is going to continue with 6 additional days of Levaquin by mouth and 3 more days of Tamiflu. DISCHARGE MEDICATIONS: Include: 1. Acetaminophen 650 mg p.o. t.i.d. 2. Amantadine 5 mL p.o. b.i.d. 3. Amitriptyline 25 mg p.o. q.h.s. 4. Baclofen 10 mg p.o. b.i.d. and 15 mg p.o. at bedtime. 5. Docusate 200 mg p.o. daily. 6. MiraLAX 17 g p.o. daily. 7. Tessalon 200 mg p.o. b.i.d. 8. Chlorhexidine mouth wash 5 mL swish and spit daily. 9. Levaquin 750 mg p.o. daily for 6 additional days. 10. Resource 2.0 nutritional supplement 4 ounces p.o. b.i.d. 11. Tamiflu 75 mg p.o. b.i.d. for 6 more tabs. DISCHARGE DIET: Putting thick pureed (unchanged). ACTIVITY LEVEL: No restrictions, but patient is essentially bedbound at baseline. FOLLOWUP: Please followup with Dr. Servando De Paz within 5 days of discharge. TIME SPENT: Time spent on discharge 35 minutes. [id number]/[facility] #: [id number] [facility]
== END 2017-06-28 15:35 | disposition home or self-care (01) | DRG 871 ==
LOC: ED 16:17 → MED 19:22
PROVIDERS: ADMIT Hospitalist; ATTEND Internal Medicine
DX: A41.9 Sepsis, unspecified organism (principal); J10.08 Influenza due to other identified influenza virus with other specified pneumonia; G25.9 Extrapyramidal and movement disorder, unspecified; F81.9 Developmental disorder of scholastic skills, unspecified; K59.00 Constipation, unspecified; R00.0 Tachycardia, unspecified; R09.02 Hypoxemia; Z79.1 Long term (current) use of non-steroidal anti-inflammatories (NSAID); Z79.899 Other long term (current) drug therapy
CPT/HCPCS: 36415; 71046; 80048; 80053; 83605; 84145; 84484; 85025; 85610; 85730; 87040; 87502; 87641; 93005; 99283; A9270-GY; J1644; J1956

== ENCOUNTER 2018-04-07 15:35 | Emergency (ER) | payer MEDICARE, MEDICAID ==
--- NOTE | 2018-04-07 18:24 | ED ---
Complex/Multi-Sys Presentation - HPI Summary HPI Summary: A 57 y/o female presents to [facility] with a chief complaint of an abrasion near her right shoulder on 04/07/18. History will be limited due to the patient's neurological deficit. Per staff at [facility] she has been crying all day, scratched herself and has no appetite. She has a temperature of 99.3 in the ED. - History Of Current Complaint Chief Complaint: EDGeneral Time Seen by Provider: 04/07/18 18:05 Hx Obtained From: Family/Manager Scheduling Hx From Patient Unobtainable Due To: Altered Mental Status Onset/Duration: Gradual Onset, Lasting Hours, Still Present Timing: Constant Severity Currently: Moderate Severity Initially: Moderate Associated Signs And Symptoms: Positive: Other - Positive: poor appetite, scratched herself by her right shoulder - Allergies/Home Medications Allergies/Adverse Reactions: Allergies Allergy/AdvReac Type Severity Reaction Status Date / Time No Known Allergies Allergy Verified 11/05/16 14:24 PMH/Surg Hx/FS Hx/Imm Hx Cardiovascular History: Reports: Other Cardiovascular Problems/Disorders - tachycardia Respiratory History: Reports: Hx Pneumonia GI History: Reports: Other GI Disorders - constipation Musculoskeletal History: Reports: Other Musculoskeletal History Sensory History: Reports: Hx Cataracts Denies: Hx Contacts or Glasses, Hx Hearing Aid Opthamlomology History: Reports: Hx Cataracts Denies: Hx Contacts or Glasses Neurological History: Reports: Hx Developmental Delay - MR, Other Neuro Impairments/Disorders - "movement disorder, secondary to MR" Psychiatric History: Reports: Hx Anxiety, Other Psychiatric Issues/Disorders - MR - Immunization History Date of Influenza Vaccine: 01/21 Infectious Disease History: No Infectious Disease History: Denies: Traveled Outside the [place] in Last 30 Days - Family History Known Family History: Positive: Unknown - Social History Alcohol Use: None Substance Use Type: Reports: None Smoking Status (MU): Never Smoked Tobacco Review of Systems Positive: Other - positive: abrasion near right shoulder Psychological: Other - positive: poor appetite, crying in pain All Other Systems Reviewed And Are Negative: Yes Physical Exam - Summary Physical Exam Summary: Appearance: The patient is well-nourished in no acute distress and in no acute pain. Skin: The skin is warm and dry and skin color reflects adequate perfusion. HEENT: The head is normocephalic and atraumatic. The pupils are equal and reactive. The conjunctivae are clear and without drainage. Nares are patent and without drainage. Mouth reveals moist mucous membranes and the throat is without erythema and exudate. The external ears are intact. The ear canals are patent and without drainage. The tympanic membranes are intact. Neck: The neck is supple with full range of motion and non-tender. There are no carotid bruits. There is no neck vein distension. Respiratory: Chest is non-tender. Lungs are clear to auscultation and breath sounds are symmetrical and equal. Cardiovascular: Heart is regular rate and rhythm. There is no murmur or rub auscultated. There is no peripheral edema and pulses are symmetrical and equal. Abdomen: The abdomen is soft and non-tender. There are normal bowel sounds heard in all four quadrants and there is no organomegaly palpated. Musculoskeletal: There is no back tenderness noted. Extremities are non-tender with full range of motion. There is good capillary refill. There is no peripheral edema or calf tenderness elicited. Neurological: Patient is alert and oriented to person, place and time. The patient has symmetrical motor strength in all four extremities. Cranial nerves are grossly intact. Deep tendon reflexes are symmetrical and equal in all four extremities. Psychiatric: The patient has an appropriate affect and does not exhibit any anxiety or depression. Triage Information Reviewed: Yes Vital Signs On Initial Exam: Initial Vitals Temp Pulse Resp BP Pulse Ox 98.2 F 70 18 144/103 100 04/07/18 15:39 04/07/18 15:39 04/07/18 15:39 04/07/18 15:39 04/07/18 15:39 Vital Signs Reviewed: Yes Diagnostics - Vital Signs Vital Signs Temp Pulse Resp BP Pulse Ox 04/07/18 15:39 98.2 F 70 18 144/103 100 - Laboratory Lab Statement: Any lab studies that have been ordered have been reviewed, and results considered in the medical decision making process. - Radiology abdoen x-ray Radiology Interpretation Completed By: ED Physician Summary of Radiographic Findings: moderate constipation. Pending official radiology report. Complex Multi-Symp Course/Dx Course Of Treatment: Ms. Cleveland was brought into the emergency department by the staff with a concern for behavioral change. She apparently has been crying some during the course of the day and has reached up and hit her right shoulder sustaining a scratch. Here in the emergency department she is nontoxic in appearance and her vital signs are stable. No history can be obtained from her but she seems to be acting more her normal self per the staff at this time. She has a small abrasion on her right clavicle. And I cannot elicit any response to the rest of the exam. A KUB was obtained because of the concern for small stools recently and she was noted to have some moderate constipation. I recommended they use the when necessary medications to encourage her to move her bowels and have her follow up with her PCP. - Diagnoses Provider Diagnoses: Constipation Discharge - Sign-Out/Discharge Documenting (check all that apply): Patient Departure - DC - Discharge Plan Condition: Stable Disposition: HOME Referrals: Servando De Paz MD [Primary Care Provider] - (2-3 days) Additional Instructions: Follow up with your PCP in 2-3 days. Return to the ED if you experience any new or worsening symptoms. - Billing Disposition and Condition Condition: STABLE Disposition: Home - Attestation Statements Document Initiated by Zoë: Yes Documenting Scribe: Marcelo Mccartney Provider For Whom Zoë is Documenting (Include Credential): Rodrick Gonsalez MD Scribe Attestation: I, Marcelo Mccartney, scribed for Rodrick Gonsalez MD on 04/07/18 at 2044. Scribe Documentation Reviewed: Yes Provider Attestation: The documentation as recorded by the Marcelo azar accurately reflects the service I personally performed and the decisions made by me, Rodrick Gonsalez MD Status of Scribe Document: Viewed
[2018-04-07] MEDS ORDERED: Acetaminophen TAB* 325 MG PO ONE (19:56)
[2018-04-07 20:35] VITALS: BP 132/89
== END 2018-04-07 20:35 | disposition home or self-care (01) ==
LOC: ED 15:35
DX: K59.00 Constipation, unspecified (principal); S40.211A Abrasion of right shoulder, initial encounter; Y33.XXXA Other specified events, undetermined intent, initial encounter; Y92.199 Unspecified place in other specified residential institution as the place of occurrence of the external cause
CPT/HCPCS: 74018; 99282; A9270-GY

== ENCOUNTER 2018-04-11 14:22 | Observation (INO) | payer MEDICARE, MEDICAID ==
--- NOTE | 2018-04-11 14:40 | ED ---
Neurological HPI - HPI Summary HPI Summary: Pt is a 57 y/o female brought in by EMS who presents to the ED c/o possible neurological deficit. She was sent from the [facility]. Her last known well is possibly 19:00 last night. Today they noticed that her head is cocked to the right. Pt is non-verbal and non-ambulatory. PMHx movement disorder and MR. Pt is a level 5 caveat due to her mental status. - History of Current Complaint Stated Complaint: POSSIBLE CODE ALFARO Time Seen by Provider: 04/11/18 14:32 Hx Obtained From: EMS Hx From Patient Unobtainable Due To: Other - MR, non-verbal Hx Last Menstrual Period: No menese per caregiver Onset/Duration: Gradual Onset, Started hours ago - Unknown, within past 24 hours , Still Present Character: Other: - Head cocked to right Aggravating: Environmantal Exposure Alleviating: Nothing Associated Signs and Symptoms: Positive: Negative - Additional Pertinent History Primary Care Physician: GREGG - Allergy/Home Medications Allergies/Adverse Reactions: Allergies Allergy/AdvReac Type Severity Reaction Status Date / Time No Known Allergies Allergy Verified 11/05/16 14:24 Home Medications: Home Medications Bacitracin OINTMENT* 1 applic TOPICAL BID 04/11/18 [History Confirmed 04/11/18] Magnesium Hydroxide LIQ* [Milk of Magnesia LIQ*] 30 ml PO DAILY 04/11/18 [ History Confirmed 04/11/18] Pseudoephedrine HCl [Sudogest] 30 mg PO Q4HR PRN 04/11/18 [History Confirmed 10/22] Zinc Oxide [Desitin] 13 % TOPICAL BID PRN 04/11/18 [History Confirmed 04/11/18] diPHENhydraMINE PO* [Benadryl PO 25 MG TAB*] 25 mg PO Q4HR PRN 04/11/18 [ History Confirmed 04/11/18] PMH/Surg Hx/FS Hx/Imm Hx Cardiovascular History: Reports: Other Cardiovascular Problems/Disorders - tachycardia Respiratory History: Reports: Hx Pneumonia GI History: Reports: Other GI Disorders - constipation Musculoskeletal History: Reports: Other Musculoskeletal History Sensory History: Reports: Hx Cataracts Denies: Hx Contacts or Glasses, Hx Hearing Aid Opthamlomology History: Reports: Hx Cataracts Denies: Hx Contacts or Glasses Neurological History: Reports: Hx Developmental Delay - MR, Other Neuro Impairments/Disorders - "movement disorder, secondary to MR" Psychiatric History: Reports: Hx Anxiety, Other Psychiatric Issues/Disorders - MR - Immunization History Date of Influenza Vaccine: 01/21 Infectious Disease History: Denies: Traveled Outside the [place] in Last 30 Days - Family History Known Family History: Positive: Unknown - Social History Alcohol Use: None Substance Use Type: Reports: None Smoking Status (MU): Never Smoked Tobacco Review of Systems Negative: Fever Neurological: Other - Head cocked to right side All Other Systems Reviewed And Are Negative: No Physical Exam - Summary Physical Exam Summary: Constitutional: Well-developed, Well-nourished, Alert. (-) Distressed Skin: Warm, Dry HENT: Normocephalic; Atraumatic Eyes: Conjunctiva normal Neck: (-) JVD, (-) Stridor, (-) Tracheal deviation, neck is not rigid, prefer to have neck rotated down and to the right Cardio: Rhythm regular, rate normal, Heart sounds normal; Intact distal pulses; The pedal pulses are 2+ and symmetric. Radial pulses are 2+ and symmetric. (-) Murmur Pulmonary/Chest wall: Effort normal. (-) Respiratory distress, (-) Wheezes, (-) Rales Abd: Soft. (-) Tenderness, (-) Distension, (-) Guarding, (-) Rebound Musculoskeletal: (-) Edema Lymph: (-) Cervical adenopathy Neuro: Contracted upper and lower extremities, although moving all four extremities. Rhythmic facial movements. Non-verbal. No dystonia. Psych: Mood and affect Normal GCS: 12 Triage Information Reviewed: Yes Vital Signs Reviewed: Yes Diagnostics - Laboratory Result Diagrams: 04/12/18 07:11 04/12/18 07:11 Lab Statement: Any lab studies that have been ordered have been reviewed, and results considered in the medical decision making process. - CT Brain CT CT Interpretation Completed By: Radiologist Summary of CT Findings: 1. SIGNIFICANTLY LIMITED STUDY DUE TO MOTION ARTIFACT, NO EVIDENCE FOR ACUTE INTRACRANIAL ABNORMALITY. 2. DIFFUSE ATROPHY WHICH HAS PROGRESSED FROM THE PRIOR STUDY. ED physician reviewed radiology report. Course/Dx - Course Course Of Treatment: Pt is a 57 y/o female brought in by EMS who presents to the ED c/o possible neurological deficit. She was sent from the [facility]. Her last known well is possibly 19:00 last night. Today they noticed that her head is cocked to the right. Pt is non-verbal and non-ambulatory. PMHx movement disorder and MR. Pt is a level 5 caveat due to her mental status. Final dx is movement disorder. The pt sees Dr. Urbina regularly as an outpatient. Will sign out to Dr. Olvera, pending consult from Dr. Urbina. - Diagnoses Provider Diagnoses: Weakness, Dehydration - Physician Notifications Discussed Care Of Patient With: Riddhi Urbina Time Discussed With Above Provider: 16:00 Instructed by Provider To: MD Will See In ED Discharge - Sign-Out/Discharge Documenting (check all that apply): Sign-Out Patient Signing out patient TO: Alli Olvera - Discharge Plan Condition: Stable Disposition: ADMITTED TO [facility] - Billing Disposition and Condition Condition: STABLE Disposition: Admitted to [facility] - Attestation Statements Document Initiated by Scribe: Yes Documenting Scribe: Saumya Matthews Provider For Whom Scribe is Documenting (Include Credential): Jamar Guan MD Scribe Attestation: Saumya Nina, scribed for Jamar Guan MD on 04/15/18 at 1037. Scribe Documentation Reviewed: Yes Provider Attestation: The documentation as recorded by the Saumya azar accurately reflects the service I personally performed and the decisions made by Jamar holloway MD Status of Scribe Document: Viewed
[2018-04-11 15:21] LABS: Hematocrit 40 % (35-47); Hemoglobin 13.1 g/dl (12.0-16.0); Mean Corpuscular HGB Conc 32 g/dl (31-36); Mean Corpuscular Hemoglobin 29 pg (27-31); Mean Corpuscular Volume 91 fL (80-97); Mean Platelet Volume 7.6 fL (7.4-10.4); Platelet Count 291 10^3/ul (150-450); Red Blood Count 4.45 10^6/ul (4.00-5.40); Red Cell Distribution Width 14 % (10.5-15); White Blood Count 10.5 10^3/ul (3.5-10.8)
[2018-04-11 15:32] LABS: EGFR Non-African American 127.6 (>60)
[2018-04-11 16:58] LABS: Urine Appearance Cloudy; Urine Blood Negative (Negative); Urine Color Yellow; Urine Ketones Negative (Negative); Urine Protein 1+(30 mg/dL) (Negative); Urine Red Blood Cell Absent (Absent); Urine Specific Gravity 1.032 (1.010-1.030); Urine Urobilinogen Negative (Negative); Urine White Blood Cell Absent (Absent)
[2018-04-11] MEDS ORDERED: NS 0.9% 1000 ML* 1,000 ML IV ONE (17:01)
--- NOTE | 2018-04-11 17:29 | ED ---
Progress - Progress Note Progress Note: Receiving sign out from Dr. Guan, pending consult from Dr. Urbina and CXR. Final dx are weakness and dehydration. Dr. Hardin accepts pt for admission. - EKG/XRAY/CT XRAY: chest Xray Comments: No active cardiopulmonary disease. ED physician reviewed radiology report. Course/Dx - Course Course Of Treatment: This patient was signed out by Dr. Guan at shift change. He reports that the patient is a 57-year-old female who has history of developmental delay, movement disorder and mental retardation who presents to the emergency department with weakness, tachycardia, and her neck tilted to the right. The patient is awaiting for a neurological consult from Dr. Urbina. Dr. Urbina reports that the patient should be admitted to the hospitalist for dehydration, weakness and further elevation. In the ED course the patient was given IV fluids for rehydration. I discussed the case with Dr. Hardin who accepted the patient for admission. The patient is hemodynamically stable, alert and oriented 3. - Diagnoses Provider Diagnoses: Weakness, Dehydration - Provider Notifications Discussed Care Of Patient With: Riddhi Urbina Time Discussed With Above Provider: 17:00 Instructed by Provider To: Other - Dr. Urbina saw the pt, and believes there are no neurological deficits. Pt's brain is progressively shrinking due to her neurodegenerative disease, and she believes this to be a manifestation of this. She notes patient looks sicker than normal, specifically dehydrated, tachycardic , and high white count. She would like the pt to be admitted for dehydration and weakness, since she has a hx of sepsis. At 18:14 Dr. Hardin accepts pt for admission. Discharge - Sign-Out/Discharge Documenting (check all that apply): Patient Departure - Admit, Receiving Sign- Out Receiving patient FROM: Jamar Guan - Discharge Plan Condition: Stable Disposition: ADMITTED TO [facility] - Billing Disposition and Condition Condition: STABLE Disposition: Admitted to [facility] - Attestation Statements Document Initiated by Scribe: Yes Documenting Scribe: Saumya Matthews Provider For Whom Scribe is Documenting (Include Credential): Alli Olvera MD Scribe Attestation: Saumya Nina, scribed for Alli Olvera MD on 04/11/18 at 205. Scribe Documentation Reviewed: Yes Provider Attestation: The documentation as recorded by the scribe, Saumya Matthews accurately reflects the service I personally performed and the decisions made by me, Alli Olvera MD Status of Scribe Document: Viewed
[2018-04-11] MEDS ORDERED: Acetaminophen TAB* 325 MG PO PRN (19:01)
[2018-04-11] MEDS ORDERED: Al Hydrox/Mg Hydrox/Simet LIQ* 30 ML UDC PO PRN (19:01)
[2018-04-11] MEDS ORDERED: Docusate CAP* 100 MG PO PRN (19:06)
[2018-04-11] MEDS ORDERED: Baclofen TAB* 10 MG PO SCH (21:00)
[2018-04-11] MEDS ORDERED: Amitriptyline TAB* 25 MG PO SCH (21:00)
--- NOTE | 2018-04-11 21:50 | CONS ---
CC: Dr. De Paz * CONSULTATION REPORT: DATE OF CONSULT: 04/11/18 REASON FOR CONSULT: Change in head position, possible stroke. PHYSICIAN: Dr. Guan. HISTORY OF PRESENT ILLNESS: Sarah Cleveland is a 57-year-old woman with history of developmental age estimated to be about 6 years of age and a history of chronic movement disorder with choreoathetotic movements, who has followed in my clinic since 2008 and has tried different medications for her movement disorder, and is currently on baclofen and amantadine with some help. She was brought in today because it was reported her head was leaning more to the right and there was a question of stroke. Her caregiver at baseline indicates that she just does not look herself, and would agree that she appears more tired and pale. PAST MEDICAL HISTORY: Includes: 1. Mental retardation with developmental age estimated at 6 years of age. 2. Abnormal motor movements described as choreoathetotic or extrapyramidal movements. 3. Previous history of sepsis. 4. Cataracts. 5. Constipation. 6. Aspiration pneumonia. MEDICATIONS: Her current medications include: 1. Amantadine 50 mg/mL, taken in the morning at 3 p.m. 2. Baclofen 10 mg p.o. b.i.d. with 15 mg at bedtime. 3. Acetaminophen 325 mg 2 tablets p.o. t.i.d. p.r.n. pain. 4. Amitriptyline 25 mg p.o. q.h.s. 5. MiraLax 8.5 g by mouth every day for constipation. 6. Milk of magnesia 30 mL by mouth if no bowel movement in 4 days. 7. Prune juice if no bowel movement in 3 days. 8. Bacitracin apply to cuts and wounds as needed. 9. Diphenhydramine 25 mg p.o. q. 4 hours as needed for runny nose or cough. 10. Sudafed 1 tablet by mouth every 4 hours as needed for congestion. 11. Docusate sodium 2 capsules by mouth every day for constipation. ALLERGIES: She has no known drug allergies. PHYSICAL EXAM: On examination today, her pulse is 107, her temperature is 99.2 , respiratory rate 32, saturation 91, blood pressure 145/88. She had tachycardia with regular rhythm. Her lungs had some decreased breath sounds inferiorly, but she was not participating in taking large breaths. She appeared thin. There was a slight excoriation noted on her right shoulder. She had some livedo reticularis as can be noted with amantadine. She held her legs straight and toes pointed. She did indeed lean her head more to the left. At first, she seemed to have more left gaze preference, but she was following examiner from left to right and blink to threat bilaterally. Her facial expression was relatively symmetric. She closed her eyes when trying to look at her pupils. There was no verbal output. With stimulation, she had more of her baseline choreoathetotic movements. She has increased tone throughout. On the left hand side, she would tend to keep her arm more bent than on the right. Her legs tend to be straight with decreased range of movement of the ankles, and difficulty moving some of the joints as she would resist when trying to move them. Her reflexes were 1+ and symmetric throughout. Her toes were upgoing bilaterally. DIAGNOSTIC STUDIES/LAB DATA: Includes CBC with a white count of 10.5, hemoglobin and hematocrit of 13.1 and 40, and platelets of 295. Her metabolic panel showed BUN was elevated at 30, creatinine was 0.5. BUN and creatinine ratio was elevated at 60. Glucose was 146. ALT was 60. Otherwise, liver function tests were normal. Her urinalysis showed 1+ protein, but negative nitrite and esterase. Her CT of the brain showed significant atrophy which has progressed from previous CT brain; this film was reviewed directly and compared to previous.. IMPRESSION: A 57-year-old woman with a history of known mental retardation with movement disorder, characterized as choreoathetotic movements, now brought in for question of stroke with head leaning more to the right, and turning to the left. Her neuro examination is also limited given her baseline function, but in comparison to what I have seen her over the years, there are no new focal findings. She does have progressive atrophy of brain consistent with her clinical decline we have seen overtime. She has gone from walking to wheelchair. I would expect further global decline over time, as one may see in dementia. She does appear more pale and tired on today's visit. She is clearly dehydrated and her mucous membranes are dry and tongue is quite dry. She is tachycardic with elevated BUN and creatinine ratio. ER is going to proceed with hydration as well as further workup for possible infection given her white blood cell count is high normal (different from her baseline). Please call if further neurologic input is needed. TIME SPENT: 45 minutes was spent in direct patient care. [id number]/[facility] #: [id number] NICHOLE
[2018-04-11] MEDS: NS 0.9% 1000 ML* 1,000 ML IV SCH (21:55)
[2018-04-11] MEDS: Amantadine LIQ* 50 MG/5 ML UDC PO SCH (21:57)
--- NOTE | 2018-04-12 02:08 | HP ---
HISTORY AND PHYSICAL: DATE OF ADMISSION: 04/11/18 PROVIDER: Aubree Tee NP PRIMARY CARE PROVIDER: Dr. Servando De Paz ATTENDING PROVIDER: Dr. Hardin * (DICTATED BY AUBREE TEE NP) CHIEF COMPLAINT: Per staff, increased fatigue. HISTORY OF PRESENT ILLNESS: Ms. Cleveland is a 57-year-old female with a past medical history significant for severe developmental delay, who is nonverbal, nonambulatory, movement disorder, constipation and history of aspiration pneumonia, who presented to the emergency room due to change in normal behavior. The patient herself is unable to provide any history or review of systems. The aide that was in the room with the patient has not seen her in approximately 4 years. I did contact the gatehouse attendant, Michael, who reports that the patient has had cold and flu- type symptoms x1 week. She was seen at her primary care physician's office yesterday and was in a normal state of health. There was no issues. He does report that she occasionally coughs with eating. He states that today she just did not look well, so they brought her to the emergency room for further evaluation. They were concerned that the patient was having a stroke as her head was leaning more to the right than normal. She was seen in consultation by Neurology in the emergency room and cleared by Neurology with no acute stroke. The patient had routine lab work and chest x- ray and urine, which were all within normal limits. Due to the concern of mild dehydration, we were asked to see and evaluate her for admission. PAST MEDICAL HISTORY: 1. Severe developmental delay. 2. Movement disorder. 3. Constipation. 4. History of aspiration pneumonia. PAST SURGICAL HISTORY: 1. Cataract extractions. HOME MEDICATIONS: 1. b.i.d. p.r.n. 2. Docusate sodium 200 mg p.o. daily p.r.n. 3. SudoGest 30 mg p.o. q.4 hours as needed. 4. Benadryl 25 mg p.o. q.4 hours as needed. 5. Bacitracin ointment topically b.i.d. 6. Milk of magnesia 30 mL p.o. daily. 7. MiraLAX 8.5 g p.o. daily. 8. Baclofen 10 mg p.o. b.i.d. 9. Baclofen 15 mg p.o. at bedtime. 10. Amitriptyline 25 mg p.o. at bedtime. 11. Acetaminophen 650 mg p.o. t.i.d. 12. Symmetrel liquid 5 mL p.o. b.i.d. ALLERGIES: No known drug allergies. FAMILY HISTORY: Unobtainable. SOCIAL HISTORY: The patient is a resident at [facility]. She does not smoke. She does not drink. She is nonverbal. She is a full code. Surrogate decisionmaker is her niece, Stefanie Jones at [phone] according to the paperwork submitted by [facility]. REVIEW OF SYSTEMS: Unobtainable. PHYSICAL EXAMINATION GENERAL: The patient appears well-developed middle-aged female, lying on the stretcher in the emergency room. She does have frequent jerking movements and occasional moist cough. She is in no respiratory distress. VITAL SIGNS: Blood pressure 140/97, heart rate is 102, respirations are 20 to 22, O2 saturation 95%, temperature on admission was 99.2. HEENT: Pupils are equal and reactive to light. Extraocular eye movements are intact. Oral mucosa appeared to be moist. Mouth with dried food particles. Dentition is poor. NECK: Supple. PULMONARY: Lungs are diminished throughout bilaterally. There are no wheezes, rales or rhonchi. CARDIOVASCULAR: S1, S2. Regular rate and rhythm. She is tachycardiac. There is no lower extremity. ABDOMEN: Round, soft and nondistended. Bowel sounds are present x4. EXTREMITIES: There is no cyanosis or clubbing. She is able to move all 4 extremities, but does have limited range of motion. NEUROLOGIC: Unable to perform. The patient does not cooperate or follow commands. She is nonverbal. SKIN: Warm and dry. There are no rashes, lesions or open sores. DIAGNOSTIC STUDIES/LAB DATA: WBCs were 10.5, RBCs 4.45, hemoglobin 13.1, hematocrit was 40, platelet count was 291. Sodium 144, potassium 4.3, chloride 106, carbon dioxide was 30, anion gap was 8, BUN was 30, creatinine 0.50. ASTs were 27, ALTs were 63. Urine was yellow, cloudy, pH was 5.0. Specific gravity 1.032. Urine protein was 1+, urine ketones, blood, nitrites, bilirubin, urobilinogen were all negative. Urine leukocyte esterase was negative. Wbc's, rbc's, bacteria, glucose were all absent. Glucose was negative. Chest x-ray: Radiologist's impression: No active cardiopulmonary disease. CT of the brain: Radiologist's impression: Significantly limited due to motion artifact. No evidence of acute intracranial abnormalities, diffuse atrophy which has progressed from prior study. ASSESSMENT AND PLAN: Ms. Cleveland is a 57-year-old female with severe developmental delay, movement disorder, constipation, who presented to the emergency room with change from baseline with the head tilted more to the right , concern for stroke. 1. Dehydration. I suspect the patient has mild dehydration. The patient has been afebrile throughout her hospitalization. She did receive 1 L of normal saline in the emergency room. I will give her gentle hydration overnight and repeat her lab work in the morning. The patient does not appear to be in acute distress. At this time, there is no evidence of infectious process going on. She will not receive any antibiotics. Her urine was without any bacteria or signs of infection. Chest x-ray was clear. Lungs were also clear and she is not hypoxic. 2. She has a cough. She has an occasional moist cough that is nonproductive. Staff reports that the patient generally has a cough increased with eating. 3. Developmental delay. The patient will continue on her medications as previously prescribed. 4. Constipation. We will continue MiraLAX and Colace as previously prescribed at home. 5. Movement disorder. The patient will continue on her baclofen as previously prescribed. 6. DVT prophylaxis: The patient's risk factor scale is at 1 giving her a low risk. I will place her on SCDs. 7. FEN: The patient can have pureed diet with honey to pudding thick liquids. 9. Code status: She is a full code. TIME SPENT: Time spent on this admission was 60 minutes, greater than half of the time was spent in the room obtaining the history of present illness from the staff, the other half of the time was spent performing physical exam and implementing my plan of care. I have discussed this with my attending, Dr. Hardin, who is in agreement with my plan. AUBREE TEE, [place] [id number]/[facility] #: [id number] [place]
[2018-04-12 07:27] LABS: ABS Basophils 0 10^3/ul (0-0.2); ABS Eosinophils 0.1 10^3/ul (0-0.6); ABS Lymphocytes 1.8 10^3/ul (1.0-4.8); ABS Monocytes 0.5 10^3/ul (0-0.8); ABS Neutrophils 4.2 10^3/ul (1.5-7.7); ABS Nucleated RBC 0 10^3/ul; Eosinophil % 0.8 %; Hematocrit 35 % (35-47); Hemoglobin 11.3 g/dl (12.0-16.0); Lymphocyte % 27.3 %; Mean Corpuscular HGB Conc 32 g/dl (31-36); Mean Corpuscular Hemoglobin 30 pg (27-31); Mean Corpuscular Volume 92 fL (80-97); Mean Platelet Volume 7.7 fL (7.4-10.4); Nucleated Red Blood Cells % 0; Platelet Count 206 10^3/ul (150-450); Red Blood Count 3.83 10^6/ul (4.00-5.40); Red Cell Distribution Width 14 % (10.5-15); White Blood Count 6.6 10^3/ul (3.5-10.8)
[2018-04-12] MEDS: NS 0.9% 1000 ML* 1,000 ML IV SCH (08:15)
[2018-04-12 08:22] LABS: EGFR Non-African American 175.2 (>60)
[2018-04-12] MEDS ORDERED: Polyethylene Glycol 3350* 17 GM PACKET PO SCH (09:00)
[2018-04-12] MEDS ORDERED: Baclofen TAB* 10 MG PO SCH (09:00)
--- NOTE | 2018-04-12 10:19 | PN ---
Subjective Date of Service: 04/12/18 Interval History: Ms. Cleveland is non-verbal and not able to offer complaint. Per her caregiver who is in the room, patient appears to be back to baseline. Objective Active Medications: Acetaminophen (Tylenol Tab*) 650 mg PO Q4H PRN Al Hydrox/Mg Hydrox/Simethicone (Maalox Plus*) 30 ml PO Q6H PRN Amantadine HCl (Symmetrel Liq*) 50 mg PO BID JES Amitriptyline HCl (Elavil Tab*) 25 mg PO BEDTIME JES Baclofen (Lioresal Tab*) 10 mg PO BID@0900,1600 JES Baclofen (Lioresal Tab*) 15 mg PO BEDTIME JES Docusate Sodium (Colace Cap*) 200 mg PO DAILY PRN Sodium Chloride (Ns 0.9% 1000 Ml*) 1,000 mls @ 100 mls/hr IV PER RATE JES Polyethylene Glycol/Electrolytes (Miralax*) 8.5 gm PO DAILY JES Vital Signs: Temp Pulse Resp BP Pulse Ox 98.0 F 92 16 139/91 99 04/12/18 02:43 04/12/18 02:43 04/12/18 02:43 04/12/18 02:43 04/12/18 02:43 Oxygen Devices in Use Now: None Appearance: Female lying on her left side in bed, small constant upper extremity and head movements Ears/Nose/Mouth/Throat: Mucous Membranes Moist Respiratory: Symmetrical Chest Expansion and Respiratory Effort, Clear to Auscultation Cardiovascular: No Edema Abdominal: NL Sounds; No Tenderness; No Distention Extremities: No Edema, - Skin: No Rash or Ulcers Neurological: - - Alert, non verbal Nutrition: Taking PO's Result Diagrams: 04/12/18 07:11 04/12/18 07:11 Microbiology and Other Data: . Assess/Plan/Problems-Billing Assessment: Ms. Cleveland is a 57 yo F with a PMH of developmental delay (estimated developmental level age 6) who was admitted on 04/11/18 with change in her baseline behavior with concern for dehydration. - Patient Problems (1) Altered mental status Comment: - Resolved. - Appreciate neuro consult, no evidence of stroke. - Suspect due to dehydration, encourage po fluids at discharge (2) Dehydration Comment: - BUN now normal after IVF - Suspect dehydration led to AMS (3) Movement disorder Comment: - at baseline (4) DVT prophylaxis (5) Full code status Comment: Status and Disposition: OBV. Discharge to home.
[2018-04-12] MEDS: Amantadine LIQ* 50 MG/5 ML UDC PO SCH (11:17)
[2018-04-12 12:28] VITALS: BP 130/70
--- NOTE | 2018-04-12 23:45 | DS ---
CC: Dr. De Paz * [facility] MEDICINE DISCHARGE SUMMARY: DATE OF ADMISSION: 04/11/18 DATE OF DISCHARGE: 04/12/18 PRIMARY CARE PHYSICIAN: Dr. De Paz. ATTENDING PHYSICIAN: Dr. Paulino Hardin * (dictation provided by Suzanne Ricks NP). PRIMARY DIAGNOSES: 1. Alteration in behavior. 2. Dehydration. SECONDARY DIAGNOSIS: 1. History of developmental delay, approximate estimated age of development at 6 years old. 2. Movement disorder. 3. Constipation. 4. History of aspiration pneumonia. 5. History of cataract extractions. MEDICATIONS: At the time of discharge, there are no medication changes recommended. The medications are: 1. Zinc oxide 13% topically b.i.d. p.r.n. 2. Docusate 200 mg p.o. daily p.r.n. 3. Pseudoephedrine 30 mg p.o. q.4 hours p.r.n. 4. Diphenhydramine 25 mg p.o. q.4 hours p.r.n. 5. Bacitracin 1 application topically b.i.d. 6. Magnesium hydroxide 30 mL p.o. daily. 7. Polyethylene glycol 8.5 g p.o. daily. 8. Baclofen 10 mg p.o. b.i.d. and 15 mg at bedtime. 9. Amitriptyline 25 mg p.o. at bedtime. 10. Tylenol 650 mg p.o. t.i.d. 11. Amantadine 5 mL p.o. b.i.d. HOSPITAL COURSE: Ms. Cleveland is a 57-year-old female with a history of severe developmental delay, who presented to the hospital on 04/11/18 with concern for alteration in her behavior. Please see the dictated H and P from Aubree Tee NP, for complete details. In brief, the patient is reported to have appeared more fatigued. She was noted to have cough, cold, or flu-like symptoms for about a week prior to admission. She had been seen by her primary care physician the day before admission and no issues identified at that time. The staff at her facility noted that her head seemed to be moving more to the right than normal and that she just did not seem herself and therefore, they brought her to the emergency room for evaluation. In the emergency room, Ms. Cleveland had labs which showed an elevated BUN at 30 with a creatinine of 0.50, glucose was 146. Her white blood cell count was normal. Her vital signs are stable. She showed no evidence of a urinary tract infection. Her flu swab was negative. Her chest x-ray was negative and her CT brain was also negative. The patient was seen in consultation by Dr. Urbina, who does follow her outpatient out of concern for possible stroke-like symptoms. She felt that the patient was near baseline, but that she did appear pale and fatigued and concurred with us that she likely had dehydration. Ms. Cleveland was admitted, placed on observation in the hospital. She was hydrated overnight with intravenous fluids. Today, on discussion with the staff , in the room, they feel that she is back to baseline. She does not appear pale. She is lying on her left side in the bed with constant movements of her upper extremities and neck and head. She is nonverbal. Ms. Cleveland appears medically stable for return to home. I have spoken to the staff and encouraged them to work with her as possible to encourage her fluid intake. DISPOSITION: To home. DIET: Regular as tolerated. ACTIVITY: As tolerated. FOLLOWUP PLANS: Please follow up with Dr. De Paz per routine next week regarding this acute observation stay in the hospital. TIME SPENT: Approximately 60 minutes was spent on the discharge of this patient , more than half time was spent with the patient at the bedside reviewing the events leading up to this hospitalization, performing the physical examination, and reviewing my plan of care. SUZANNE RICKS NP [id number]/[facility] #: [id number] [place]
== END 2018-04-12 12:45 | disposition home or self-care (01) ==
LOC: ED 14:22 → MED 20:16
PROVIDERS: ADMIT Internal Medicine; ATTEND Internal Medicine
DX: R46.89 Other symptoms and signs involving appearance and behavior (principal); E86.0 Dehydration; G25.9 Extrapyramidal and movement disorder, unspecified; K59.00 Constipation, unspecified; Z87.01 Personal history of pneumonia (recurrent); Z98.49 Cataract extraction status, unspecified eye; Z86.59 Personal history of other mental and behavioral disorders; F79 Unspecified intellectual disabilities
CPT/HCPCS: 36415; 70450; 71046; 80048; 80053; 81003; 81015; 85025; 85027; 87040; 96360; 96361; 99284; A9270-GY; G0378

== ENCOUNTER 2018-05-02 18:19 | Emergency (ER) | payer MEDICARE, MEDICAID ==
--- NOTE | 2018-05-02 19:19 | ED ---
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 The patient is nonverbal, level 5 caveat. The man with her comes from the [facility] where she stays and says she is at her baseline mental status. In the ED her O2 is up to 98%. The home where she lives found that she had congested lung ferrera and white frothy sputum. PMHX PNA. SHX disability [facility]. - History of Current Complaint Chief Complaint: EDShortnessOfBreath Time Seen by Provider: 05/02/18 19:04 Hx Obtained From: Family/Woods Rider Hx From Patient Unobtainable Due To: Other - nonverbal Current Severity: None - Allergy/Home Medications Allergies/Adverse Reactions: Allergies Allergy/AdvReac Type Severity Reaction Status Date / Time No Known Allergies Allergy Verified 11/05/16 14:24 PMH/Surg Hx/FS Hx/Imm Hx Cardiovascular History: Reports: Other Cardiovascular Problems/Disorders - tachycardia Respiratory History: Reports: Hx Pneumonia GI History: Reports: Other GI Disorders - constipation Musculoskeletal History: Reports: Other Musculoskeletal History Sensory History: Reports: Hx Cataracts Denies: Hx Contacts or Glasses, Hx Hearing Aid Opthamlomology History: Reports: Hx Cataracts Denies: Hx Contacts or Glasses Neurological History: Reports: Hx Developmental Delay - MR, Other Neuro Impairments/Disorders - "movement disorder, secondary to MR" Psychiatric History: Reports: Hx Anxiety, Other Psychiatric Issues/Disorders - MR - Immunization History Date of Influenza Vaccine: 01/21 Infectious Disease History: No Infectious Disease History: Denies: Traveled Outside the [place] in Last 30 Days - Family History Known Family History: Positive: Unknown - level 5, nonverbal - Social History Lives: [facility] - disability care Alcohol Use: None Substance Use Type: Reports: None Smoking Status (MU): Never Smoked Tobacco Review of Systems - ROS Summary Review of Systems Summary: ROS limited due to the patient being nonverbal, level 5 caveat Positive: Shortness Of Breath All Other Systems Reviewed And Are Negative: No Physical Exam - Summary Physical Exam Summary: Appearance: Well-appearing, Well-nourished, lying in bed comfortable. Nonverbal. Skin: Warm, dry, no obvious rash Eyes: sclera anicteric, no conjunctival pallor ENT: mucous membranes moist Neck: deferred Respiratory: No signs of respiratory distress Cardiovascular: Appears well perfused, pulses are nml Abdomen: deferred Musculoskeletal: Moving all 4 extremities without obvious discomfort. Diffuse myoclonic choreiform movements of arms and head. Neurological: Awake and alert, mentation is normal, speech is fluent and appropriate Psychiatric: affect is normal, does not appear anxious or depressed Triage Information Reviewed: Yes Vital Signs On Initial Exam: Initial Vitals Temp Pulse Resp BP Pulse Ox 99.8 F 102 25 128/62 95 05/02/18 18:25 05/02/18 18:25 05/02/18 18:25 05/02/18 18:25 05/02/18 18:25 Vital Signs Reviewed: Yes Diagnostics - Vital Signs Vital Signs Temp Pulse Resp BP Pulse Ox 05/02/18 18:25 99.8 F 102 25 128/62 95 - Laboratory Result Diagrams: 05/02/18 19:51 05/02/18 19:51 Lab Statement: Any lab studies that have been ordered have been reviewed, and results considered in the medical decision making process. - Radiology CXR Radiology Interpretation Completed By: ED Physician Summary of Radiographic Findings: No acute disease, pending official radiology report - EKG 19:19 Cardiac Rate: NL - 96 bpm EKG Rhythm: Sinus Rhythm Summary of EKG Findings: P waves, QRS complex, and T waves are within normal limits, T waves and intervals are normal, no ischemic changes. Course/Dx - Course Course Of Treatment: This patient is a 57 year old F brought in by ambulance accompanied by a male with a chief complaint of SPO2 77% since [employer]. The patient is nonverbal, level 5 caveat. The man with her comes from the disability [facility] where she stays and says she is at her baseline mental status. In the ED her O2 is up to 98%. The home where she lives found that she had congested lung ferrera and white frothy sputum. An EKG reveals NSR 96 bpm, P waves, QRS complex , and T waves are within normal limits, T waves and intervals are normal, no ischemic changes. CXR reveals, per ED physician, no acute disease, pending official radiology report. Test results with no significant abnormalities. Patient will be discharged with follow up from Dr. De Paz. The patient is agreeable with this plan. - Diagnoses Provider Diagnoses: Hypoxemia Discharge - Sign-Out/Discharge Documenting (check all that apply): Patient Departure - discharge - Discharge Plan Condition: Good Disposition: HOME Patient Education Materials: Shortness of Breath (ED) Referrals: Servando De Paz MD [Primary Care Provider] - Additional Instructions: The patient was not hypoxemic during a two-hour period of observation here in the emergency department. She has not displayed any signs of respiratory distress. Her chest x-ray looks normal, as does routine blood work. I would not make any changes to her medical therapy at this point. - Billing Disposition and Condition Condition: GOOD Disposition: Home - Attestation Statements Document Initiated by Christiibe: Yes Documenting Scribe: Pilo Burrows Provider For Whom Zoë is Documenting (Include Credential): Rodrick Peralta MD Scribe Attestation: Pilo Nina scribed for Rodrick Peralta MD on 05/03/18 at 0209. Scribe Documentation Reviewed: Yes Provider Attestation: The documentation as recorded by the Pilo azar accurately reflects the service I personally performed and the decisions made by me, Rodrick Peralta MD Status of Scribe Document: Viewed
[2018-05-02 20:04] LABS: Hematocrit 37 % (35-47); Hemoglobin 11.8 g/dl (12.0-16.0); Mean Corpuscular HGB Conc 32 g/dl (31-36); Mean Corpuscular Hemoglobin 29 pg (27-31); Mean Corpuscular Volume 90 fL (80-97); Mean Platelet Volume 6.6 fL (7.4-10.4); Platelet Count 419 10^3/ul (150-450); Red Cell Distribution Width 14 % (10.5-15); White Blood Count 7.3 10^3/ul (3.5-10.8)
[2018-05-02 20:08] LABS: ABS Basophils 0.1 10^3/ul (0-0.2); ABS Eosinophils 0.1 10^3/ul (0-0.6); ABS Lymphocytes 2.3 10^3/ul (1.0-4.8); ABS Monocytes 0.5 10^3/ul (0-0.8); ABS Neutrophils 4.5 10^3/ul (1.5-7.7); ABS Nucleated RBC 0 10^3/ul; Eosinophil % 0.8 %; Lymphocyte % 31.5 %; Nucleated Red Blood Cells % 0
[2018-05-02 20:20] LABS: Albumin 3.7 g/dL (3.2-5.2); Albumin/Globulin Ratio 1.3 (1-3); BUN/Creatinine Ratio 27.7 (8-20); Calcium 9.4 mg/dL (8.6-10.3); EGFR Non-African American 94.3 (>60); Globulin 2.8 g/dL (2-4); Potassium 4.7 mmol/L (3.5-5.0); Total Bilirubin 0.3 mg/dL (0.2-1.0); Total Protein 6.5 g/dL (6.4-8.9)
[2018-05-02 20:51] VITALS: BP 120/79
== END 2018-05-02 21:12 | disposition home or self-care (01) ==
LOC: ED 18:19
DX: R09.02 Hypoxemia (principal)
CPT/HCPCS: 36415; 71045; 80053; 83605; 84484; 85025; 87040; 93005; 99283

== ENCOUNTER 2018-09-24 16:14 | Emergency (ER) | payer MEDICAID, MEDICARE ==
--- NOTE | 2018-09-24 17:30 | ED ---
GI/ HPI - HPI Summary HPI Summary: LEVEL 5 CAVEAT: HPI UNOBTAINABLE DUE TO MR, NONVERBAL. This patient is a 57 year old female accompanied by her hockey player presenting to [facility] with a chief complaint of vomiting 90 mins ago. She reports nausea and coughing. Patient is non-verbal. - History of Current Complaint Chief Complaint: EDNauseaVomitDiarrh Time Seen by Provider: 09/24/18 17:23 Stated Complaint: VOMITING PER EMS Hx Obtained From: Family/Patient Services Coordinator Hx From Patient Unobtainable Due To: Other - LEVEL 5 CAVEAT: HPI UNOBTAINABLE DUE TO MR, NONVERBAL. Hx Last Menstrual Period: No menese per caregiver Pain Intensity: 0 - Additional Pertinent History Primary Care Physician: GREGG - Allergy/Home Medications Allergies/Adverse Reactions: Allergies Allergy/AdvReac Type Severity Reaction Status Date / Time No Known Allergies Allergy Verified 11/05/16 14:24 PMH/Surg Hx/FS Hx/Imm Hx Cardiovascular History: Reports: Other Cardiovascular Problems/Disorders - tachycardia Respiratory History: Reports: Hx Pneumonia GI History: Reports: Other GI Disorders - constipation Musculoskeletal History: Reports: Other Musculoskeletal History Sensory History: Reports: Hx Cataracts Denies: Hx Contacts or Glasses, Hx Hearing Aid Opthamlomology History: Reports: Hx Cataracts Denies: Hx Contacts or Glasses Neurological History: Reports: Hx Developmental Delay - MR, Other Neuro Impairments/Disorders - "movement disorder, secondary to MR" Psychiatric History: Reports: Hx Anxiety, Other Psychiatric Issues/Disorders - MR - Immunization History Date of Influenza Vaccine: 01/21 Infectious Disease History: No Infectious Disease History: Denies: Traveled Outside the [place] in Last 30 Days - Family History Known Family History: Positive: Unknown - level 5, nonverbal - Social History Alcohol Use: None Substance Use Type: Reports: None Smoking Status (MU): Never Smoked Tobacco - Additional Comments History Additional Comments: LEVEL 5 CAVEAT: PMH UNOBTAINABLE DUE TO MR, NONVERBAL. Review of Systems Positive: Cough Positive: Vomiting, Nausea All Other Systems Reviewed And Are Negative: No - Comments Additional Review of Systems Comments: LEVEL 5 CAVEAT: ROS LIMITED DUE TO MR, NONVERBAL. Physical Exam - Summary Physical Exam Summary: Appearance: The patient is well-nourished in no acute distress and in no acute pain. Nonverbal. Skin: The skin is warm and dry and skin color reflects adequate perfusion. HEENT: The head is normocephalic and atraumatic. The pupils are equal and reactive. The conjunctivae are clear and without drainage. Nares are patent and without drainage. Mouth reveals moist mucous membranes and the throat is without erythema and exudate. The external ears are intact. The ear canals are patent and without drainage. The tympanic membranes are intact. Neck: The neck is supple with full range of motion and non-tender. There are no carotid bruits. There is no neck vein distension. Respiratory: Chest is non-tender. Lungs are clear to auscultation and breath sounds are symmetrical and equal. Periodic weak cough. Cardiovascular: Heart is regular rate and rhythm. There is no murmur or rub auscultated. There is no peripheral edema and pulses are symmetrical and equal. Abdomen: The abdomen is soft and non-tender. There are normal bowel sounds heard in all four quadrants and there is no organomegaly palpated. Musculoskeletal: There is no back tenderness noted. Extremities are non-tender with full range of motion. There is good capillary refill. There is no peripheral edema or calf tenderness elicited. Neurological: Patient is alert and oriented to person, place and time. The patient has symmetrical motor strength in all four extremities. Cranial nerves are grossly intact. Deep tendon reflexes are symmetrical and equal in all four extremities. Psychiatric: The patient has an appropriate affect and does not exhibit any anxiety or depression. Vital Signs On Initial Exam: Initial Vitals Temp Pulse Resp BP Pulse Ox 98.3 F 90 16 144/101 95 09/24/18 16:24 09/24/18 16:24 09/24/18 16:24 09/24/18 16:24 09/24/18 16:24 Completion Of Physical Exam Limited Due To: Level 5 Diagnostics - Vital Signs Vital Signs Temp Pulse Resp BP Pulse Ox 09/24/18 16:24 98.3 F 90 16 144/101 95 - Laboratory Lab Statement: Any lab studies that have been ordered have been reviewed, and results considered in the medical decision making process. - Radiology CXR Radiology Interpretation Completed By: ED Physician Summary of Radiographic Findings: Possible right infiltrate. Pending official radiologist report. GIGU Course/Dx - Course Course Of Treatment: Ms. Cleveland was brought in because she was observed to vomit. She is here with a staff member who does not know her. The patient appears to occasionally make a weak cough effort. She was afebrile with stable vitals and a chest x-ray was suggestive of a right sided infiltrate. I don't know whether this represents an acute aspiration or whether she has an infiltrate which has led to the vomiting. I will treat her with antibiotics and follow-up - Diagnoses Provider Diagnoses: Pulmonary aspiration Discharge - Sign-Out/Discharge Documenting (check all that apply): Patient Departure - Discharge Patient Received Moderate/Deep Sedation with Procedure: No - Discharge Plan Condition: Stable Disposition: HOME Prescriptions: Amoxicillin/Clavulanate SUSP* [Augmentin SUSP*] 800 mg PO BID #200 ml Patient Education Materials: Aspiration Pneumonia (DC) Referrals: Servando De Paz MD [Primary Care Provider] - Additional Instructions: Return to ED with any new or worsening symptoms. - Billing Disposition and Condition Condition: STABLE Disposition: Home - Attestation Statements Document Initiated by Zoë: Yes Documenting Scribe: Case Guerra Provider For Whom Zoë is Documenting (Include Credential): Rodrick Gonsalez MD Scribe Attestation: Case Nina scribed for Rodrick Gonsalez MD on 09/24/18 at 2115. Scribe Documentation Reviewed: Yes Provider Attestation: The documentation as recorded by the Case azar accurately reflects the service I personally performed and the decisions made by Rodrick holloway MD Status of Scribe Document: Viewed
[2018-09-24 19:10] VITALS: BP 135/109
== END 2018-09-24 19:08 | disposition home or self-care (01) ==
LOC: ED 16:14
DX: J69.0 Pneumonitis due to inhalation of food and vomit (principal); F79 Unspecified intellectual disabilities
CPT/HCPCS: 71046; 99282

== ENCOUNTER → 2018-11-28 10:39 | Emergency (ER) | payer MEDICARE, MEDICAID ==
--- NOTE | 2018-11-28 11:38 | ED ---
Complex/Multi-Sys Presentation - HPI Summary HPI Summary: LEVEL 5 CAVEAT secondary to developmental delay and being nonverbal. The patient is a 58 y/o F presenting to [facility] accompanied by caregiver from [facility] with concerns of possible dehydration with known decreased oral intake of food and liquids with gradual onset over the last few months. The patient wears an adult diaper which is changed every two hours with normal urination every shift. It is also noted that the patient is recommended to have a PEG tube after swallowing evaluation with gastroenterology on 11/18/18. Since then, there has been difficulty having the patient eat. Staff also reports that the patient had aspiration PNA in spring 2018. Hx of tachycardia, PNA, constipation, developmental delay, nonverbal. Nonsmoker, no EtOH, no substance use. - History Of Current Complaint Chief Complaint: EDGeneral Time Seen by Provider: 11/28/18 11:31 Hx Obtained From: Family/Garment Cutter - staff from [facility] Hx From Patient Unobtainable Due To: Other - developmental delay, nonverbal Onset/Duration: Gradual Onset, Lasting Weeks - months, Still Present Timing: Weeks - last few months Severity Currently: Moderate Severity Initially: Mild Associated Signs And Symptoms: Positive: Decreased Oral Intake, Other - POSITIVE : dehydration; NEGATIVE: changes in urination - Allergies/Home Medications Allergies/Adverse Reactions: Allergies Allergy/AdvReac Type Severity Reaction Status Date / Time No Known Allergies Allergy Verified 11/28/18 10:44 Home Medications: Home Medications Nutritional Supplement [Resource 2.0] 1 liq PO BID 11/28/18 [History Confirmed 11/28/18] PMH/Surg Hx/FS Hx/Imm Hx Cardiovascular History: Reports: Other Cardiovascular Problems/Disorders - tachycardia Respiratory History: Reports: Hx Pneumonia GI History: Reports: Other GI Disorders - constipation Musculoskeletal History: Reports: Other Musculoskeletal History Sensory History: Reports: Hx Cataracts Denies: Hx Contacts or Glasses, Hx Hearing Aid Opthamlomology History: Reports: Hx Cataracts Denies: Hx Contacts or Glasses Neurological History: Reports: Hx Developmental Delay - MR, Other Neuro Impairments/Disorders - "movement disorder, secondary to MR" Psychiatric History: Reports: Hx Anxiety, Other Psychiatric Issues/Disorders - MR - Surgical History Surgical History: None Surgery Procedure, Year, and Place: none - Immunization History Date of Influenza Vaccine: 01/21 Infectious Disease History: No Infectious Disease History: Denies: Traveled Outside the [place] in Last 30 Days - Family History Known Family History: Positive: Unknown - level 5, nonverbal - Social History Alcohol Use: None Hx Substance Use: No Substance Use Type: Reports: None Hx Tobacco Use: No Smoking Status (MU): Never Smoked Tobacco Review of Systems Positive: Other - possible dehydration Positive: Other - decreased PO intake Positive: other - NEGATIVE: changes in urination All Other Systems Reviewed And Are Negative: No - Comments Additional Review of Systems Comments: patient is a LEVEL 5 CAVEAT secondary to developmental delay, nonverbal Physical Exam - Summary Physical Exam Summary: Appearance: Well-appearing, Well-nourished, lying in bed comfortably, No clinical signs Skin: Warm, dry, no obvious rash, turgor is good Eyes: sclera anicteric, no conjunctival pallor ENT: mucous membranes moist, pharynx appears normal Neck: Supple, nontender Respiratory: Clear to auscultation, no signs of respiratory distress Cardiovascular: Normal S1, S2. No murmurs. Normal distal pulses in tibial and radial bilaterally. Abdomen: Soft, nontender, normal active bowel sounds present Musculoskeletal: Normal, Strength/ROM Intact Neurological: Developmentally delayed, nonverbal, awake and alert Psychiatric: affect is normal, does not appear anxious or depressed Triage Information Reviewed: Yes Vital Signs On Initial Exam: Initial Vitals Temp Pulse Resp BP Pulse Ox 99.1 F 85 20 136/88 0 11/28/18 10:42 11/28/18 10:42 11/28/18 10:42 11/28/18 10:42 11/28/18 10:42 Vital Signs Reviewed: Yes Completion Of Physical Exam Limited Due To: Level 5 - secondary to developmental delay, nonverbal Diagnostics - Vital Signs Vital Signs Temp Pulse Resp BP Pulse Ox 11/28/18 10:42 99.1 F 85 20 136/88 0 - Laboratory Result Diagrams: 11/28/18 11:56 11/28/18 11:56 Lab Statement: Any lab studies that have been ordered have been reviewed, and results considered in the medical decision making process. Re-Evaluation - Re-Evaluation First Eval Re-Evaluation Time: 13:00 Comment: I discussed discharge plan with the glass cutter helper in the ED. Complex Multi-Symp Course/Dx Course Of Treatment: LEVEL 5 CAVEAT secondary to developmental delay, nonverbal. The patient is a 58 y/o F accompanied by caregiver from [facility] with staff concerns for dehydration and known decrease in eating or drinking well for a few months. Patient met with GI on 11/18 for swallowing evaluation, and since the patient did not do well, there is recommendation for PEG tube, which is still in progress. In the meantime, it is difficult to get the patient to eat, but she is urinating normally. Upon physical exam, the patient appears to be developmentally delayed and nonverbal without clinical signs, skin turgor is good. Blood work is within normal limits with RBCs of 4.99 , MPV of 7.2, carbon dioxide of 34, BUN/Creatinine of 40.0, ALT of 69. I spoke with Dr. Giles's office, and it is noted that there are not currently any appointments for the patient to have the PEG tube placed. At 1300, I spoke with Moreno, the charge nurse at the [facility], to tell the home that the patient is able to be discharged and does not appear to be dehydrated with normal blood work. I addtionally told her that the patient needs to have her guardian sign for consent for the follow-up appointments for the PEG tube placement; I attempted to contact family members, but they did not answer. Patient will be discharged back to the [facility] with dx of swallowing difficulty. Staff are advised to have consent signed for patient's procedure, and they agree. AFter patient's discharge I received a call back from pt's brother Case Cleveland , who has apparently been making decisions on the patient's behalf. I explained that he should contact the GI office to arrange for consent for PEG tube placement. - Diagnoses Provider Diagnoses: Swallowing difficulty - Physician Notifications Discussed Care Of Patient With: Moreno - home nurse at [facility] Time Discussed With Above Provider: 13:00 Instructed by Provider To: Other - I spoke with Dr. Giles's office to see if there are appointments scheduled for the PEG placement. At 1300, I spoke with Moreno from the [facility] to report that the patient needs her guardian to sign for consent of the procedure of the PEG placement. I also reported the results of today's visit, which are negative for dehydration. Discharge - Sign-Out/Discharge Documenting (check all that apply): Patient Departure - Patient will be discharged back to [facility]. Patient Received Moderate/Deep Sedation with Procedure: No - Discharge Plan Condition: Stable Disposition: HOME Patient Education Materials: Dysphagia (ED) Referrals: Servando De Paz MD [Primary Care Provider] - 2 Days Additional Instructions: Sarah's lab studies and exam today did not show any signs of significant dehydration, but apparently she should be getting a PEG tube to facilitate getting nutrition. Her guardian needs to get involved to provide consent to the screw driver operator so they can schedule this procedure. - Billing Disposition and Condition Condition: STABLE Disposition: Home - Attestation Statements Document Initiated by Zoë: Yes Documenting Scribe: Carmen Gimenez Provider For Whom Zoë is Documenting (Include Credential): Dr. Rodrick Peralta MD Scribe Attestation: Carmen Nina scribed for Dr. Rodrick Peralta MD on 11/29/18 at 1218. Scribe Documentation Reviewed: Yes Provider Attestation: The documentation as recorded by the Carmen azar accurately reflects the service I personally performed and the decisions made by me, Dr. Rodrick Peralta MD Status of Scribangela Document: Viewed
[2018-11-28 12:04] LABS: ABS Eosinophils 0.1 10^3/ul (0-0.6); ABS Lymphocytes 1.8 10^3/ul (1.0-4.8); ABS Monocytes 0.5 10^3/ul (0-0.8); Hematocrit 44 % (35-47); Hemoglobin 14.9 g/dL (12.0-16.0); Lymphocyte % 28.1 %; Mean Corpuscular HGB Conc 34 g/dL (31-36); Mean Corpuscular Hemoglobin 30 pg (27-31); Mean Corpuscular Volume 89 fL (80-97); Mean Platelet Volume 7.2 fL (7.4-10.4); Platelet Count 286 10^3/uL (150-450); Red Blood Count 4.99 10^6 /uL (3.70-4.87); Red Cell Distribution Width 14 % (10-15); White Blood Count 6.4 10^3/uL (3.5-10.8)
[2018-11-28 12:26] LABS: Albumin 4.4 g/dL (3.2-5.2); Albumin/Globulin Ratio 1.6 (1-3); Calcium 9.7 mg/dL (8.6-10.3); EGFR African American 124.7 (>60); Globulin 2.7 g/dL (2-4); Potassium 4.9 mmol/L (3.5-5.0); Total Bilirubin 0.3 mg/dL (0.2-1.0); Total Protein 7.1 g/dL (6.4-8.9)
[2018-11-28 13:18] VITALS: BP 132/88
== END | disposition home or self-care (01) ==
LOC: ED 10:39
DX: R13.10 Dysphagia, unspecified (principal)
CPT/HCPCS: 36415; 80053; 85025; 99282

== ENCOUNTER 2019-01-04 19:04 | Emergency (ER) | payer MEDICARE, MEDICAID ==
--- NOTE | 2019-01-04 19:17 | ED ---
HPI Cardiac - HPI Summary HPI Summary: LEVEL 5 CAVEAT: HPI LIMITED DUE TO PATIENT MENTAL STATUS. This patient is a 58 year old female brought in by EMS from [facility] presenting to [facility] with a chief complaint of weakness. Staff at [facility] took patient's BP and O2sat and found her BP to bve 88/45 and 57% O2 sat. EMS found her to have normal vital signs (BP 136/72, 82 BPM, 97% O2 sat. She has normal vital signs in room. Temp Pulse Resp BP Pulse Ox 98.6 F 89 16 140/90 99 01/04/19 19:07 01/04/19 19:07 01/04/19 19:07 01/04/19 19:07 01/04/19 19:07 - History of Current Complaint Chief Complaint: EDGeneral Stated Complaint: "WEAKNESS PER EMS" Time Seen by Provider: 01/04/19 19:10 Hx Last Menstrual Period: No menese per caregiver Pain Intensity: 0 - Additional Pertinent History Primary Care Physician: GREGG - Allergy/Home Medications Allergies/Adverse Reactions: Allergies Allergy/AdvReac Type Severity Reaction Status Date / Time No Known Allergies Allergy Verified 11/28/18 10:44 PMH/Surg Hx/FS Hx/Imm Hx Cardiovascular History: Reports: Other Cardiovascular Problems/Disorders - tachycardia Respiratory History: Reports: Hx Pneumonia GI History: Reports: Other GI Disorders - constipation Musculoskeletal History: Reports: Other Musculoskeletal History Sensory History: Reports: Hx Cataracts Denies: Hx Contacts or Glasses, Hx Hearing Aid Opthamlomology History: Reports: Hx Cataracts Denies: Hx Contacts or Glasses Neurological History: Reports: Hx Developmental Delay - MR, Other Neuro Impairments/Disorders - "movement disorder, secondary to MR" Psychiatric History: Reports: Hx Anxiety, Other Psychiatric Issues/Disorders - MR - Surgical History Surgery Procedure, Year, and Place: none - Immunization History Date of Influenza Vaccine: 01/21 Infectious Disease History: No Infectious Disease History: Denies: Traveled Outside the [place] in Last 30 Days - Family History Known Family History: Positive: Unknown - level 5, nonverbal - Social History Alcohol Use: None Hx Substance Use: No Substance Use Type: Reports: None Hx Tobacco Use: No Smoking Status (MU): Never Smoked Tobacco - Additional Comments History Additional Comments: LEVEL 5 CAVEAT: PMH LIMITED DUE TO PATIENT MENTAL STATUS. Review of Systems - ROS Summary Review of Systems Summary: LEVEL 5 CAVEAT: ROS LIMITED DUE TO PATIENT MENTAL STATUS. Positive: Other - Hypotensive per correction Positive: Other - Hypoxia per correction All Other Systems Reviewed And Are Negative: No Physical Exam - Summary Physical Exam Summary: Constitutional: Well-developed, Well-nourished, Alert. (-) Distressed. Resting comfortably in bed, nods her head when talked to. Skin: Warm, Dry HENT: Normocephalic; Atraumatic Eyes: Conjunctiva normal Neck: Musculoskeletal ROM normal neck. (-) JVD, (-) Stridor, (-) Tracheal deviation Cardio: Rhythm regular, rate normal, Heart sounds normal; Intact distal pulses; The pedal pulses are 2+ and symmetric. Radial pulses are 2+ and symmetric. (-) Murmur Pulmonary/Chest wall: Effort normal. (-) Respiratory distress, (-) Wheezes, (-) Rales Abd: Soft, (-) tenderness, (-) Distension, (-) Guarding, (-) Rebound Musculoskeletal: (-) Edema Lymph: (-) Cervical adenopathy Psych: Mood and affect Normal Triage Information Reviewed: Yes Vital Signs On Initial Exam: Initial Vitals Temp Pulse Resp BP Pulse Ox 98.6 F 89 16 140/90 99 01/04/19 19:07 01/04/19 19:07 01/04/19 19:07 01/04/19 19:07 01/04/19 19:07 Vital Signs Reviewed: Yes Diagnostics - Vital Signs Vital Signs Temp Pulse Resp BP Pulse Ox 01/04/19 19:07 98.6 F 89 16 140/90 99 - Laboratory Lab Statement: Any lab studies that have been ordered have been reviewed, and results considered in the medical decision making process. - Radiology CXR Radiology Interpretation Completed By: ED Physician Summary of Radiographic Findings: No acute process. Pending official radiologist report. Disposition - Course Course Of Treatment: Patient is here for suspected hypoxia from her correction. Patient is nonverbal at baseline. Patient had an oxygen saturation of 57 % per correction staff but was overall well-appearing during this. EMS arrived and rechecked her vitals with normalization of them. Patient was monitored in EMS transport and here with no abnormal vital signs. Patient appeared comfortable in bed with no evidence of respiratory distress. Patient had negative chest x-ray for any acute abnormality. I do not believe patient actually had an oxygen saturation 57% and this likely represented user error versus equipment malfunction. - Diagnoses Provider Diagnoses: Encounter for medical screening examination Discharge ED - Sign-Out/Discharge Documenting (check all that apply): Patient Departure - Discharge Patient Received Moderate/Deep Sedation with Procedure: No - Discharge Plan Condition: Stable Disposition: HOME Referrals: Servando De Paz MD [Primary Care Provider] - Additional Instructions: Her O2 sat was greater than 95% the entire duration with EMS and the ED. She did not appear in any respiratory distress. Her chest X-ray did not show any abnormality. Return to ED with any worsening symptoms. - Billing Disposition and Condition Condition: STABLE Disposition: Home - Attestation Statements Document Initiated by Zoë: Yes Documenting Scribe: Case Guerra Provider For Whom Zoë is Documenting (Include Credential): Moshe Fuentes MD Scribe Attestation: Case Nina, scribed for Moshe Fuentes MD on 01/04/19 at 1936. Scribe Documentation Reviewed: Yes Provider Attestation: The documentation as recorded by the Case azar accurately reflects the service I personally performed and the decisions made by me, Moshe Fuentes MD Status of Scribe Document: Viewed
[2019-01-04 20:57] VITALS: BP 119/83
== END 2019-01-04 20:55 | disposition home or self-care (01) ==
LOC: ED 19:04
DX: Z00.00 Encounter for general adult medical examination without abnormal findings (principal); Z79.899 Other long term (current) drug therapy
CPT/HCPCS: 71045; 99281

== ENCOUNTER 2019-03-04 09:21 | Emergency (ER) | payer MEDICARE, MEDICAID ==
--- NOTE | 2019-03-04 09:43 | ED ---
Respiratory - HPI Summary HPI Summary: LEVEL 5 CAVEAT: NON-VERBAL This patient is a 58 year old F presenting to [facility] by EMS with a chief complaint of SOB since prior to arrival. Pt possibly aspirated on food, and when EMS arrived they said she was 75% on room O2. - History of Current Complaint Stated Complaint: SHORT OF BREATH Time Seen by Provider: 03/04/19 09:30 Hx Obtained From: EMS Hx From Patient Unobtainable Due To: Other - LEVEL 5 CAVEAT: NON-VERBAL Onset/Duration: Sudden Onset, Resolved - Allergy/Home Medications Allergies/Adverse Reactions: Allergies Allergy/AdvReac Type Severity Reaction Status Date / Time No Known Allergies Allergy Verified 03/05/19 09:03 PMH/Surg Hx/FS Hx/Imm Hx Previously Healthy: No - LEVEL 5 CAVEAT: NON-VERBAL Cardiovascular History: Reports: Other Cardiovascular Problems/Disorders - tachycardia Respiratory History: Reports: Hx Pneumonia GI History: Reports: Other GI Disorders - constipation Musculoskeletal History: Reports: Other Musculoskeletal History Sensory History: Reports: Hx Cataracts Denies: Hx Contacts or Glasses, Hx Hearing Aid Opthamlomology History: Reports: Hx Cataracts Denies: Hx Contacts or Glasses Neurological History: Reports: Hx Developmental Delay - MR, Other Neuro Impairments/Disorders - "movement disorder, secondary to MR" Psychiatric History: Reports: Hx Anxiety, Other Psychiatric Issues/Disorders - MR - Surgical History Surgery Procedure, Year, and Place: none - Immunization History Date of Influenza Vaccine: 01/21 Infectious Disease History: Denies: Traveled Outside the [place] in Last 30 Days - Family History Known Family History: Positive: Unknown - level 5, nonverbal - Social History Alcohol Use: None Hx Substance Use: No Substance Use Type: Reports: None Hx Tobacco Use: No Smoking Status (MU): Never Smoked Tobacco Review of Systems Positive: Shortness Of Breath All Other Systems Reviewed And Are Negative: No - Comments Additional Review of Systems Comments: LEVEL 5 CAVEAT: NON-VERBAL Physical Exam - Summary Physical Exam Summary: LEVEL 5 CAVEAT: NON-VERBAL Appearance: lying in bed comfortably, Somewhat chronically ill appearing, no obvious respiratory distress, Skin: Warm, dry, no obvious rash Eyes: sclera anicteric, no conjunctival pallor ENT: mucous membranes moist, pharynx appears normal, facial dysmorphism Neck: Supple, nontender Respiratory: Clear to auscultation, no signs of respiratory distress Cardiovascular: Normal S1, S2. No murmurs. Normal distal pulses in tibial and radial bilaterally. 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 Unable to follow commands, or even nod head yes or no Psychiatric: affect is normal, does not appear anxious or depressed Triage Information Reviewed: Yes Vital Signs On Initial Exam: Initial Vital Signs Temp 96.8 F 03/04/19 09:24 Pulse 116 03/04/19 09:24 Resp 22 03/04/19 09:24 BP 133/103 03/04/19 09:24 Pulse Ox 91 03/04/19 09:24 Vital Signs Reviewed: Yes Procedures - Sedation Patient Received Moderate/Deep Sedation with Procedure: No Diagnostics - Laboratory Result Diagrams: 03/04/19 09:46 03/04/19 09:46 Lab Statement: Any lab studies that have been ordered have been reviewed, and results considered in the medical decision making process. - Radiology CXR Radiology Interpretation Completed By: Radiologist Summary of Radiographic Findings: CXR reveals, per radiologist, IMPRESSION: 1. LIMITED STUDY. 2. PROBABLE LINGULAR CONSOLIDATION. ED physician has reviewed this radiology report. Disposition - Course Course Of Treatment: LEVEL 5 CAVEAT: NON-VERBAL. This patient is a 58 year old F presenting to [facility] by EMS with a chief complaint of SOB since prior to arrival. Pt possibly aspirated on food, and when EMS arrived they said she was 75% on room O2. She has a h/o similar problems in the past. Blood work obtained. MPV is 7.2, BUN/Creatinine Ratio is 21.3, Glucose is 156, and Alkaline Phosphatase is 108. CXR reveals, per radiologist, IMPRESSION: 1. LIMITED STUDY. 2. PROBABLE LINGULAR CONSOLIDATION. ED physician has reviewed this radiology report. I am not certain I agree with the consolidation. The patient was observed on the monitor for several hours in the ED and did not develop any desaturations or signs of respiratory distress. I feel she can be safely discharged back to [facility] at this point. - Diagnoses Provider Diagnoses: Mental retardation, Tachycardia, Movement disorder, Aspiration into respiratory tract Provider Diagnoses: (Ruled Out): Pneumonia Discharge ED - Sign-Out/Discharge Documenting (check all that apply): Patient Departure - Discharge Plan Condition: Good Disposition: HOME Patient Education Materials: Aspiration Precautions (ED) Referrals: Servando De Paz MD [Primary Care Provider] - If Needed Additional Instructions: Ms. Cleveland did well in the ED. She did not show any further signs of respiratory distress, and oxygen saturation remained stable in the mid 90's. She may have had some transient mucous plugging or aspiration but this does not appeared to have caused any significant compromise. Should she worsen over the next day or 2 we would be happy to see her back here. - Billing Disposition and Condition Condition: GOOD Disposition: Home - Attestation Statements Document Initiated by Khadrae: Yes Documenting Scribe: Noemy Potts Provider For Whom Zoë is Documenting (Include Credential): Rodrick Peralta MD Scribe Attestation: I, Noemy Potts, scribed for Rodrick Peralta MD on at 1841. Scribe Documentation Reviewed: Yes Provider Attestation: The documentation as recorded by the scribe, Noemy Potts accurately reflects the service I personally performed and the decisions made by , Rodrick Peralta MD Status of Scribe Document: Viewed
[2019-03-04 09:53] LABS: ABS Lymphocytes 1.1 10^3/ul (1.0-4.8); ABS Monocytes 0.4 10^3/ul (0-0.8); ABS Neutrophils 6.4 10^3/ul (1.5-7.7); Eosinophil % 0.3 %; Hematocrit 43 % (35-47); Hemoglobin 14.3 g/dL (12.0-16.0); Lymphocyte % 14.3 %; Mean Corpuscular HGB Conc 33 g/dL (31-36); Mean Corpuscular Hemoglobin 30 pg (27-31); Mean Corpuscular Volume 90 fL (80-97); Mean Platelet Volume 7.2 fL (7.4-10.4); Nucleated Red Blood Cells % 0.1; Platelet Count 268 10^3/uL (150-450); Red Blood Count 4.82 10^6 /uL (3.70-4.87); Red Cell Distribution Width 14 % (10-15)
[2019-03-04 10:11] LABS: Albumin 4.3 g/dL (3.2-5.2); Albumin/Globulin Ratio 1.5 (1-3); BUN/Creatinine Ratio 21.3 (8-20); Calcium 9.6 mg/dL (8.6-10.3); EGFR African American 89.5 (>60); EGFR Non-African American 73.9 (>60); Globulin 2.9 g/dL (2-4); Potassium 4.5 mmol/L (3.5-5.0); Total Bilirubin 0.3 mg/dL (0.2-1.0); Total Protein 7.2 g/dL (6.4-8.9)
[2019-03-04 12:35] VITALS: BP 111/80
== END 2019-03-04 12:34 | disposition home or self-care (01) ==
LOC: ED 09:21
DX: T17.920A Food in respiratory tract, part unspecified causing asphyxiation, initial encounter (principal); G25.9 Extrapyramidal and movement disorder, unspecified; R00.0 Tachycardia, unspecified; F79 Unspecified intellectual disabilities; X58.XXXA Exposure to other specified factors, initial encounter; Y92.9 Unspecified place or not applicable
CPT/HCPCS: 36415; 71046; 80053; 85025; 99283

== ENCOUNTER 2019-03-05 08:57 | Observation (INO) | payer MEDICARE, MEDICAID ==
[2019-03-05 10:18] LABS: ABS Basophils 0.1 10^3/ul (0-0.2); ABS Lymphocytes 0.9 10^3/ul (1.0-4.8); ABS Monocytes 0.6 10^3/ul (0-0.8); ABS Neutrophils 8.5 10^3/ul (1.5-7.7); Eosinophil % 0.1 %; Hematocrit 37 % (35-47); Hemoglobin 12.4 g/dL (12.0-16.0); Mean Corpuscular HGB Conc 34 g/dL (31-36); Mean Corpuscular Hemoglobin 30 pg (27-31); Mean Corpuscular Volume 89 fL (80-97); Mean Platelet Volume 7.4 fL (7.4-10.4); Platelet Count 231 10^3/uL (150-450); Red Blood Count 4.16 10^6 /uL (3.70-4.87); Red Cell Distribution Width 14 % (10-15)
[2019-03-05] MEDS ORDERED: Albuterol/Ipratropium NEB.SOL* Albuterol 2.5 MG/Ipratropium 0.5 MG 3 ML INH ONE (10:18)
--- NOTE | 2019-03-05 10:34 | ED ---
Complex/Multi-Sys Presentation - HPI Summary HPI Summary: Pt is a 58 y/o F presenting to the ED with her [employer] for multiple symptoms. Note: pt is non-verbal, HPI given by main [employer]. Pt was here yesterday when her [employer] thought she may have aspirated, and she received a CXR. She was sent home, but is returning for HR of 100 and temp of 101. Pt has had drastically decreased oral intake, over the weekend ate only 5% of what she was given. She has not urinated since 1700 on 03/04/19, is somnolent, sounding gurgly, and her behavior generally is abnormal. She also had increased amounts of bowel movements yesterday. Pt's [employer] is requesting a flu swab. - History Of Current Complaint Chief Complaint: EDGeneral Time Seen by Provider: 03/05/19 09:50 Hx Obtained From: Family/Water Operator Hx From Patient Unobtainable Due To: Other - pt is nonverbal Onset/Duration: Gradual Onset, Lasting Days, Still Present Timing: Constant, Days Severity Initially: Moderate Associated Signs And Symptoms: Positive: SOB - gurgling noises, Decreased Oral Intake, Other - decreased urination, increase in bowel movements - Allergies/Home Medications Allergies/Adverse Reactions: Allergies Allergy/AdvReac Type Severity Reaction Status Date / Time No Known Allergies Allergy Verified 03/05/19 09:03 Home Medications: Home Medications Hydrocolloid Dressing [Duoderm Cgf] 1 applic TOPICAL EVERY OTHER DAY 03/05/19 [ History Confirmed 03/05/19] Nutritional Supplement [Resource 2.0] 237 ml PO DAILY 03/05/19 [History Confirmed 03/05/19] PMH/Surg Hx/FS Hx/Imm Hx Previously Healthy: Yes Cardiovascular History: Reports: Other Cardiovascular Problems/Disorders - tachycardia Respiratory History: Reports: Hx Pneumonia GI History: Reports: Other GI Disorders - constipation Musculoskeletal History: Reports: Other Musculoskeletal History Sensory History: Reports: Hx Cataracts Denies: Hx Contacts or Glasses, Hx Hearing Aid Opthamlomology History: Reports: Hx Cataracts Denies: Hx Contacts or Glasses Neurological History: Reports: Hx Developmental Delay - MR, Other Neuro Impairments/Disorders - "movement disorder, secondary to MR" Psychiatric History: Reports: Hx Anxiety, Other Psychiatric Issues/Disorders - MR - Surgical History Surgery Procedure, Year, and Place: none - Immunization History Date of Influenza Vaccine: 01/21 Infectious Disease History: No Infectious Disease History: Denies: Traveled Outside the [place] in Last 30 Days - Family History Known Family History: Positive: Unknown - pt is nonverbal and unable to give hx. - Social History Alcohol Use: None Hx Substance Use: No Substance Use Type: Reports: None Hx Tobacco Use: No Smoking Status (MU): Never Smoked Tobacco Review of Systems Positive: Other - decreased oral intake Positive: Shortness Of Breath - gurgling noises coming from airway Positive: Other - increased bowel movements Neurological: Other - somnolent Positive: Other - generalized behavioral changes All Other Systems Reviewed And Are Negative: Yes Physical Exam - Summary Physical Exam Summary: Constitutional: Thin, Alert. (-) Distressed Skin: Warm, Dry HENT: Normocephalic; Atraumatic. Saliva pooling in mouth, poor dentition Eyes: Conjunctiva normal Neck: Musculoskeletal ROM normal neck. (-) JVD, (-) Stridor, (-) Nuchal rigidity Cardio: Rhythm regular, rate normal, Heart sounds normal; Intact distal pulses; Radial pulses are 2+ and symmetric. (-) Murmur Pulmonary/Chest wall: Upper airway gurgling, (-) Respiratory distress, (-) Wheezes, (-) Rales Abd: Soft, (-) tenderness, (-) Distension, (-) Guarding, (-) Rebound Musculoskeletal: (-) Edema Lymph: (-) Cervical adenopathy Neuro: Alert, non-verbal, at baseline Psych: Deferred Triage Information Reviewed: Yes Vital Signs On Initial Exam: Initial Vitals Temp Pulse Resp BP Pulse Ox 99.2 F 100 18 138/87 92 03/05/19 08:58 03/05/19 08:58 03/05/19 08:58 03/05/19 08:58 03/05/19 08:58 Vital Signs Reviewed: Yes Procedures - Sedation Patient Received Moderate/Deep Sedation with Procedure: No Diagnostics - Vital Signs Vital Signs Temp Pulse Resp BP Pulse Ox 03/05/19 09:30 101 94 03/05/19 09:27 140/88 03/05/19 08:58 99.2 F 100 18 138/87 92 - Laboratory Lab Results: Lab Results 03/05/19 Range/Units 10:09 WBC 10.0 (3.5-10.8) 10^3/uL RBC 4.16 (3.70-4.87) 10^6 /uL Hgb 12.4 (12.0-16.0) g/dL Hct 37 (35-47) % MCV 89 (80-97) fL MCH 30 (27-31) pg MCHC 34 (31-36) g/dL RDW 14 (10-15) % Plt Count 231 (150-450) 10^3/uL MPV 7.4 (7.4-10.4) fL Neut % (Auto) 84.6 % Lymph % (Auto) 9.0 % Williamson % (Auto) 5.8 % Eos % (Auto) 0.1 % Baso % (Auto) 0.5 % Absolute Neuts (auto) 8.5 H (1.5-7.7) 10^3/ul Absolute Lymphs (auto) 0.9 L (1.0-4.8) 10^3/ul Absolute Monos (auto) 0.6 (0-0.8) 10^3/ul Absolute Eos (auto) 0.0 (0-0.6) 10^3/ul Absolute Basos (auto) 0.1 (0-0.2) 10^3/ul Absolute Nucleated RBC 0.0 10^3/ul Nucleated RBC % 0.0 Result Diagrams: 03/05/19 10:09 03/05/19 10:09 Lab Statement: Any lab studies that have been ordered have been reviewed, and results considered in the medical decision making process. - Radiology CXR Radiology Interpretation Completed By: Radiologist Summary of Radiographic Findings: Limited exam with no perceivable focal consolidation. ED physician has reviewed this report. Re-Evaluation - Re-Evaluation First Eval Re-Evaluation Time: 11:11 Comment: BUN/Cr elevation c/w dehydration. Given IVF. Got duoneb given reported cough to help with bronchospasm. EWOB on re evaluation. 2nd re-eval Re-Evaluation Time: 11:23 Change: Unchanged Comment: Pt's weight in December was 41kg, yesterday (03/04) was 36kg, today is 33kg. 3rd re-eval Re-Evaluation Time: 12:37 Change: Unchanged Comment: Patient w minimal urine on cath. Will give additonal IVF and admit for failure to thrive. Complex Multi-Symp Course/Dx - Diagnoses Provider Diagnoses: Failure to thrive Discharge ED - Sign-Out/Discharge Documenting (check all that apply): Patient Departure - Discharge Plan Condition: Stable Disposition: ADMITTED TO [facility] Referrals: Servando De Paz MD [Primary Care Provider] - - Billing Disposition and Condition Condition: STABLE Disposition: Admitted to [facility] - Attestation Statements Document Initiated by Scribe: Yes Documenting Scribe: Shirlene Valencia Provider For Whom Scribe is Documenting (Include Credential): Mayra Chu MD. Scribe Attestation: I, Shirlene Valencia, scribed for Mayra Chu MD. on 03/05/19 at 1534. Scribe Documentation Reviewed: Yes Provider Attestation: The documentation as recorded by the scribe, Shirlene Valencia accurately reflects the service I personally performed and the decisions made by me, Mayra Chu MD. Status of Scribe Document: Viewed Consult Consult: 1125 - I spoke with Dr. Vera who states the pt's labs don't indicate need for an emergent peg tube, will await re eval after IVF. 1310 - After discussion about dec UOP, Dr. Vera will be in to evaluate the pt. 1500 - Dr. Vera will admit pt.
[2019-03-05 10:38] LABS: Albumin/Globulin Ratio 1.5 (1-3); Calcium 9.6 mg/dL (8.6-10.3); EGFR African American 124.7 (>60); Globulin 2.7 g/dL (2-4); Potassium 4.3 mmol/L (3.5-5.0); Total Bilirubin 0.4 mg/dL (0.2-1.0); Total Protein 6.7 g/dL (6.4-8.9)
[2019-03-05] MEDS ORDERED: NS 0.9% 1000 ML** 1,000 ML IV ONE ×3 (10:41→14:17)
[2019-03-05] MEDS ORDERED: Ketorolac INJ* 30 MG/ML 1 ML VIAL IV ONE (13:07)
[2019-03-05 13:20] LABS: Influenza A Molecular NEGATIVE (Negative); Influenza B Molecular NEGATIVE (Negative)
[2019-03-05] MEDS ORDERED: Ondansetron INJ* 2 MG/ML VIAL IV PRN (14:51)
[2019-03-05] MEDS ORDERED: Acetaminophen SUPP* 650 MG SUPP PR PRN (14:56)
[2019-03-05] MEDS ORDERED: NS 0.9% 1000 ML** 1,000 ML IV SCH (15:00)
--- NOTE | 2019-03-05 18:13 | HP ---
AMENDED REPORT NOW INCLUDES DESIGNATED COSIGNER - ESIGNED BEFORE ADJUSTMENTS ADDENDUM NOW INCLUDED ON THIS REPORT ADMISSION HISTORY AND PHYSICAL: DATE OF ADMISSION: 03/05/19 PRIMARY CARE PHYSICIAN: Servando De Paz MD PROVIDER: Avani Crowley NP ATTENDING PHYSICIAN: Dr. Vera.* (DICTATED BY AVANI CROWLEY NP) OTHER PROVIDERS: Include Dr. Vargas HISTORY OF PRESENT ILLNESS: This is a 58-year-old female with a past medical history significant for severe developmental delay and movement disorder who is seen in the emergency room on 03/05/19 with fever and tachycardia. The patient is a resident at the [facility], states she has not been eating or drinking well for the past 3 days, made no urine in the past 24 hours and has had loose stools since yesterday. Over the past year, has been having an increasing difficulty with eating. She is currently on nectar-thick pureed foods at home, but struggles with intake and frequently coughs with concerns for aspiration while at home. The patient has been chronically underweight ranging around 80 pounds with a fairly recent drop to 74 pounds as noted today. In the emergency room, labs were drawn. Chest x-ray was performed which was negative for pneumonia. Lab work was generally unremarkable except for elevated BUN and creatinine ratio which is suggestive of dehydration. The patient's mucous membranes were quite dry, noted caked on food to the roof of her mouth. The patient received a total of 3 L of fluid in the emergency room, is nonverbal. Gathered information through [facility] aide who was present at bedside. Recently, there has been a question of PEG tube placement since at least November of this year due to continued troubles with eating and aspiration. Last had a video fluoroscopy performed in November of this year which showed aspiration on nectar thick and pudding thick foods. I spoke with Dr. Giles over the phone who is familiar with the patient and had been previously consulted for PEG tube. She was concerned about there being an ethical issue with PEG tube placement and the fact that we are not sure that this is what is in the best interest of the patient considering her general long -term decline and relatively stable nutritional status at this point. The patient has normal protein levels. Also spoke with Dr. Urbina who has been taking care of the patient since at least 2008. Originally, Dr. Urbina said that the patient was ambulatory, but has gradually declined throughout the years and is currently in a wheelchair. So, this correlates with the concern that the patient has had functional decline, currently evidenced by increased struggles with chewing and swallowing over the patient year. So, Dr. Vargas was contacted in order to see the patient in order to help determine decline versus a medical issue requiring aggressive medical management. PAST MEDICAL HISTORY: Severe developmental delay disorder, constipation and aspiration pneumonia. PAST SURGICAL HISTORY: Cataract extraction. ALLERGIES: No known drug allergies. HOME MEDICATIONS: 1. Magnesium hydroxide 30 mL p.o. daily p.r.n. 2. Diphenhydramine 25 mg p.o. q.4 hours p.r.n. 3. Bacitracin 1 application topically b.i.d. p.r.n. 4. Zinc oxide 1 application topically b.i.d. p.r.n. 5. Pseudoephedrine 30 mg p.o. q.4 hours p.r.n. 6. Polyethylene glycol 10 mL p.o. daily. 7. Amantadine 5 mL p.o. b.i.d. 8. Docusate 200 mg p.o. daily p.r.n. 9. Baclofen 10 mg p.o. b.i.d. and baclofen 15 mg p.o. at bedtime. 10. Amitriptyline 25 mg p.o. at bedtime. 11. Acetaminophen 650 mg p.o. t.i.d. p.r.n. 12. Hydrocolloid dressing 1 topically every other day. 13. Nutritional supplement 237 mL p.o. daily. REVIEW OF SYSTEMS: Review of systems was impossible to perform due to nonverbal status of the patient. PHYSICAL EXAMINATION GENERAL: This is a cachetic woman seen in bed making aimless movements, nonverbal, unable to follow commands. Unable to assess whether in distress or not. VITAL SIGNS: Temperature 99.1 Fahrenheit, 103 pulse, 16 respirations, 98% oxygen on room air, and 144/63 blood pressure. HEENT: Eyes: Conjunctivae are pink and moist. PERRLA. ENT: Noted caked food to the roof of the mouth. Poor dentition. Mucous membranes dry. NECK: Supple. RESPIRATORY: Noted faint expiratory rhonchi to the bilateral upper lobes, though clear throughout all other lung ferrera on room air. CARDIAC: S1, S2 present. Heart rate regular. No murmurs, gallops, or rubs appreciated. ABDOMEN: Soft, nondistended, nontender, positive bowel sounds x4. MUSCULOSKELETAL: No clubbing or cyanosis of the digits. Noted some contracture to the lower extremities and arms. SKIN: No open areas appreciated at this time. PSYCH: Unable to assess orientation status. DIAGNOSTIC STUDIES/LABORATORY STUDIES: EKG was difficult to interpret due to artifact from the patient moving frequently; however, appears to be sinus rhythm with no ST changes. Chest x-ray shows limited exam with no perceivable focal consolidation. BUN and creatinine ratio of 35.0, glucose 127, lactic acid was initially 2.3 but decreased to 2.0. All other lab values normal. Negative for flu. ASSESSMENT AND PLAN: My impression is this is a 58-year-old female with a past medical history significant for movement disorder and developmental delay who is admitted on 03/05/19 for dehydration and failure to thrive. 1. Dehydration. The patient received 3 L of normal saline in the emergency room. We will continue normal saline at 100 mL/h. The patient was anuric in the emergency room. Unable to obtain a specimen with the straight cath. We will recommend bladder scans every 8 hours, has not voided in about [address] Vargas spoken with as described in HPI. She and a psychologist social will see patient tomorrow, which will help determine whether to procedure with emergent PEG tube or not. Due to the fact that her protein levels are normal despite difficulties with feeding, I do no feel that an emergent PEG tube is necessary at this time. Has a preestablished appointment with Dr. Giles for said tube in April. 2. Movement disorder. The patient does make random aimless movement frequently , to continue amantadine and baclofen and amitriptyline. 3. DVT prophylaxis. SCDs. 4. Code status is full code. TIME SPENT: Time spent on the patient was over 90 minutes with about 40% of that spent [id number]. Plan of care was discussed with my attending and they agree. AVANI WILVER, PIPE CHIPPER ADDENDUM: FAMILY HISTORY: Noncontributory. SOCIAL HISTORY: No tobacco use, alcohol use or any other illicit substances. 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 AVANI WILVER, PIPE CHIPPER [id number]/[facility]PS #: [id number]/CPS #: [id number] [facility]
[2019-03-05] MEDS ORDERED: Amitriptyline TAB* 25 MG PO SCH (21:00)
[2019-03-05] MEDS: Baclofen TAB* 10 MG PO SCH (21:46)
[2019-03-05] MEDS: Amantadine SOLN* ORALSYR 10 MG/ML ML PO SCH (21:46)
[2019-03-06] MEDS ORDERED: NS 0.9% 1000 ML** 1,000 ML IV ONE (00:05)
[2019-03-06] MEDS ORDERED: Zosyn per Pharmacy* NOTE FOLLOW UP SCH (01:00)
[2019-03-06] MEDS ORDERED: Piperacillin/Tazobac ADVAN(*) 3.375 GM in NS 0.9% 100 ML* 100 ML IVPB ONE (01:30)
[2019-03-06] MEDS: ZOSYN 3.375 GM Q8H per EXTENDED INFUSION IVPB SCH ×4 (05:32→15:07)
[2019-03-06] MEDS ORDERED: NUTRITIONAL SUPPLEMENT PO SCH (09:00)
[2019-03-06 09:26] LABS: BUN/Creatinine Ratio 28.3 (8-20); EGFR African American 169.4 (>60); Potassium 4.2 mmol/L (3.5-5.0)
[2019-03-06] MEDS ORDERED: Atropine 1% (ORAL/SL)* 15 ML BTL SL PRN (10:48)
[2019-03-06] MEDS: Baclofen TAB* 10 MG PO SCH (13:03)
[2019-03-06] MEDS: Amantadine SOLN* ORALSYR 10 MG/ML ML PO SCH (13:03)
--- NOTE | 2019-03-06 14:00 | CONSULT ---
Palliative / Hospice Consult Ordering Provider: Avani Crowley - PCP-Jona Referal Reason: Goals of care/no BM meds/no narcotics - Subjective Code Status: Full Code Advance Directives Location: No Advance Directives - History or Present Illness History or Present Illness: 58yo resident of [facility] since 2008 with mental retardation and movement disorder presents with dehydration. PMH is significant for 04/11/19 neurology consult stating progressive atrophy of brain consistent with clinical decline, expect further global decline like in dementia, MR with developmental age of 6yrs estimated, abnormal motor described as choreoathetotic or extrapyramidal on baclofen and amantidine, constipation, h/o aspiration pneumonia, h/o sepsis and cataracts. PSHx no tob, no etoh, brother Case lives in [place] [phone] he is next of kin but doesn't have guardianship. Studies CXR neg, ekg afib, H/H 12.4/37, BUN/Cr 21/.6, egfr 103 and alb 4. Pt has been admitted 04/11-04/12/2018 for dehydration & possible stroke , and has had 7 ER visits for multiple issues. All history is from family, aide and medical record pt is nonverbal which is her baseline. Lab Values: Abnormal Lab Results 03/06/19 03/06/19 00:25 08:57 Sodium 142 Potassium 4.2 Chloride 116 H Carbon Dioxide 21 L Anion Gap 5 BUN 13 Creatinine 0.46 L Est GFR ( Amer) 169.4 Est GFR (Non-Af Amer) 140.0 BUN/Creatinine Ratio 28.3 H Glucose 82 Lactic Acid 0.4 L Calcium 8.0 L Laboratory Last Values WBC 10.0 10^3/uL (3.5-10.8) 03/05/19 10:09 RBC 4.16 10^6 /uL (3.70-4.87) 03/05/19 10:09 Hgb 12.4 g/dL (12.0-16.0) 03/05/19 10:09 Hct 37 % (35-47) 03/05/19 10:09 MCV 89 fL (80-97) 03/05/19 10:09 MCH 30 pg (27-31) 03/05/19 10:09 MCHC 34 g/dL (31-36) 03/05/19 10:09 RDW 14 % (10-15) 03/05/19 10:09 Plt Count 231 10^3/uL (150-450) 03/05/19 10:09 MPV 7.4 fL (7.4-10.4) 03/05/19 10:09 Neut % (Auto) 84.6 % 03/05/19 10:09 Lymph % (Auto) 9.0 % 03/05/19 10:09 Callahan % (Auto) 5.8 % 03/05/19 10:09 Eos % (Auto) 0.1 % 03/05/19 10:09 Baso % (Auto) 0.5 % 03/05/19 10:09 Absolute Neuts (auto) 8.5 10^3/ul (1.5-7.7) H 03/05/19 10:09 Absolute Lymphs (auto) 0.9 10^3/ul (1.0-4.8) L 03/05/19 10:09 Absolute Monos (auto) 0.6 10^3/ul (0-0.8) 03/05/19 10:09 Absolute Eos (auto) 0.0 10^3/ul (0-0.6) 03/05/19 10:09 Absolute Basos (auto) 0.1 10^3/ul (0-0.2) 03/05/19 10:09 Absolute Nucleated RBC 0.0 10^3/ul 03/05/19 10:09 Nucleated RBC % 0.0 03/05/19 10:09 Sodium 142 mmol/L (135-145) 03/06/19 08:57 Potassium 4.2 mmol/L (3.5-5.0) 03/06/19 08:57 Chloride 116 mmol/L (101-111) H 03/06/19 08:57 Carbon Dioxide 21 mmol/L (22-32) L 03/06/19 08:57 Anion Gap 5 mmol/L (2-11) 03/06/19 08:57 BUN 13 mg/dL (6-24) 03/06/19 08:57 Creatinine 0.46 mg/dL (0.51-0.95) L 03/06/19 08:57 Est GFR ( Amer) 169.4 (>60) 03/06/19 08:57 Est GFR (Non-Af Amer) 140.0 (>60) 03/06/19 08:57 BUN/Creatinine Ratio 28.3 (8-20) H 03/06/19 08:57 Glucose 82 mg/dL (70-100) 03/06/19 08:57 Lactic Acid 0.4 mmol/L (0.5-2.0) L 03/06/19 00:25 Calcium 8.0 mg/dL (8.6-10.3) L 03/06/19 08:57 Total Bilirubin 0.40 mg/dL (0.2-1.0) 03/05/19 10:09 AST 17 U/L (13-39) 03/05/19 10:09 ALT 33 U/L (7-52) 03/05/19 10:09 Alkaline Phosphatase 94 U/L (34-104) 03/05/19 10:09 Total Protein 6.7 g/dL (6.4-8.9) 03/05/19 10:09 Albumin 4.0 g/dL (3.2-5.2) 03/05/19 10:09 Globulin 2.7 g/dL (2-4) 03/05/19 10:09 Albumin/Globulin Ratio 1.5 (1-3) 03/05/19 10:09 Influenza A (Rapid) Negative (Negative) 03/05/19 12:42 Influenza B (Rapid) Negative (Negative) 03/05/19 12:42 - Objective Active Medications: Acetaminophen (Tylenol Supp*) 650 mg [place] Q4H PRN PRN Reason: MILD PAIN or TEMP > 100.4 Last Admin: 03/05/19 23:22 Dose: 650 mg Amantadine HCl (Symmetrel Liq*) 50 mg PO BID [facility] Last Admin: 03/06/19 13:03 Dose: Not Given Amitriptyline HCl (Elavil Tab*) 25 mg PO BEDTIME [facility] Last Admin: 03/05/19 21:46 Dose: 25 mg Atropine Sulfate (Atropine 1% (Oral/Sl)*) 2 drop SL Q2H PRN PRN Reason: oral secretions Baclofen (Lioresal Tab*) 10 mg PO BID [facility] Last Admin: 03/06/19 13:03 Dose: Not Given Sodium Chloride (Ns 0.9% 1000 Ml) 1,000 mls @ 100 mls/hr IV PER RATE JES Last Admin: 03/06/19 01:44 Dose: 100 mls/hr Piperacillin Sod/Tazobactam (Sod 3.375 gm/ Sodium Chloride) 100 mls @ 25 mls/ hr IVPB Q8HR [facility] Last Admin: 03/06/19 05:32 Dose: 25 mls/hr Ondansetron HCl (Zofran Inj*) 4 mg IV Q4H PRN PRN Reason: NAUSEA/VOMITING Pharmacy Consult (Zosyn Per Pharmacy*) 1 note FOLLOW UP .ZOSYN PER PHARMACY [facility] Vital Signs: Vital Signs: Temp Pulse Resp BP Pulse Ox 97.3 F 72 22 123/96 100 03/06/19 11:15 03/06/19 11:15 03/06/19 11:15 03/06/19 11:15 03/06/19 11:15 Patient Weight: Weight 39.463 kg Intake and Output: Intake & Output 03/04/19 03/05/19 03/06/19 03/07/19 06:59 06:59 06:59 06:59 Intake Total 0 100 Balance 0 100 Weight 39.463 kg Intake: IVPB 100 Oral 0 0 Other: Estimated Void Medium Medium # Voids 0 ADLs: Meal Record Start: 03/05/19 15: 53 Freq: DAILY@0900,1400,1800 Status: Active Protocol: Created 03/05/19 15:53 System (Rec: 03/05/19 15:53 System SW-C01) Document 03/06/19 09:00 [id number] (Rec: 03/06/19 10:20 [id number] MED-C11) Document 03/06/19 12:44 [id number] (Rec: 03/06/19 12:44 [id number] [facility]-M19) Intake and Output Start: 03/05/19 09: 03 Freq: Status: Active Protocol: Created 03/05/19 09:03 System (Rec: 03/05/19 09:03 System ED-C24) Intake and Output Start: 03/05/19 15: 53 Freq: DAILY@0600,1400,2200 Status: Active Protocol: Created 03/05/19 15:53 System (Rec: 03/05/19 15:53 System SW-C01) Document 03/05/19 21:55 [id number] (Rec: 03/05/19 21:56 [id number] MED-C07) Document 03/06/19 05:42 [id number] (Rec: 03/06/19 05:43 [id number] [facility]-C07) Document 03/06/19 13:51 [id number] (Rec: 03/06/19 13:51 [id number] [facility]-C09) Head: Normal Eyes: No Scleral Icterus Ears/Nose/Mouth/Throat: NL Teeth, Lips, Gums Neck: NL Appearance and Movements; NL JVP Cardiovascular: NL Sounds; No Murmurs; No JVD Respiratory: Symmetrical Chest Expansion and Respiratory Effort, Clear to Auscultation Abdominal: NL Sounds; No Tenderness; No Distention Extremities: No Edema - Assessment Assessment: 58yo female with mental retardation and developmental age 6yo and abnormal motor movement disorder presents with dehydration - Plan Consult Plan (MU): Palliative Plan: Spoke with pt's brother about his sister being admitted. He is not convinced a feeding tube will help his sister because he thinks she will pull it out. He would like to pursue making her DNR/DNI with no feeding tube because she has had a significant decline in the last 10years and knows she will only get worse. The RN's and aides at her group have called him to agree with a feeding tube which is being explored as an outpatient with Dr. Giles and has appt 05/01/2019. Pt has become increasingly difficult to feed but does still take po with pureed and thickened liquids. They note she has lost weight but according to our records her weight is stable and her albumin is 4. Caretakers are very interested in feeding tube because they don't want to starve her/not feed her. Pt has a history of aspiration pneumonia. Pt frequently chokes on her saliva and intermittently swallows but often coughs. I don't think feeding tube will help pt's overall condition, she has a progressive neurologic condition which has affected her swallowing and will most likely cause recurrent aspiration pneumonia. Neurology feels pt's illness will follow decline similar to dementia. Pt would be eligible for hospice with inability to swallow and recurrent aspiration pneumonia. KPS 40%, PPS 40% - Time On Unit Date of Evaluation: 03/06/19 Hospice Consult Time in: 11:30 Hospice Consult Time Out: 13:00 Hospice Consult Time Total: 90 > 50% of Time Spend In Counseling or Coordinating Care: Yes
[2019-03-06 19:55] VITALS: BP 126/83
--- NOTE | 2019-03-06 22:59 | DS ---
CC: Dr. De Paz * DISCHARGE SUMMARY: DATE OF ADMISSION: 03/05/19 DATE OF DISCHARGE: 03/06/19 ATTENDING PHYSICIAN WHILE IN THE HOSPITAL: Dr. Karuna Vera * (ROSA Hartley) PRIMARY CARE PROVIDER: Dr. De Paz. PRINCIPAL DIAGNOSIS: Dehydration, resolved. SECONDARY DIAGNOSES: 1. Severe developmental and intellectual delay. 2. Constipation. 3. Frequent aspiration pneumonia. 4. Abnormal motor movement described as choreoathetotic or extrapyramidal movements. 5. Cataracts. STUDIES WHILE IN THE HOSPITAL: Chest x-ray on 03/05/19, impression: Limited exam with no perceivable focal consolidation. HISTORY OF PRESENT ILLNESS/HOSPITAL COURSE: Sarah Cleveland is a 58-year-old white female with a past medical history significant for developmental delay, abnormal motor movements, and intellectual delay with developmental age estimated at 6 years of age in 2019 who presented to the emergency department on 03/05/19 from the [facility] where she is a resident with fever and tachycardia. Her aides were stating that she has not been eating and drinking well for the last 3 days and made no urine in 24 hours period. For further information regarding her admission, please see history and physical written by Avani Crowley NP. Although reports of patient having a fever in the [facility], she did not have fever on presentation. During her hospital stay, there was a temperature of 100.6 that was noted; however, this may not be the most accurate temperature as it was measured in the axilla. Later in her hospital stay, an oral temperature was taken a few hours after these axillary temperatures were taken. An oral temperature was measured at 96.8. She had no leukocytosis on presentation. I have no reason to believe that there is any sign of infection. Her BUN and creatinine ratio did demonstrate dehydration which did improve with IV hydration during her hospital stay. Continuous IV fluids were continued. The patient was able to eat with much encouragement. There were multiple documented wet briefs and no evidence of urine retention on day of discharge. Additionally, a registered dietitian did evaluate the patient during her time and did demonstrate the evidence that the patient has had no weight loss over the last 5 years which does indicate good nutrient intake. Her albumin was within normal limits on admission as well. The patient is nonverbal and is unable to participate in history on day of discharge but does not express signs of discomfort. During the patient's hospital stay, she was evaluated by Dr. Vargas. An emergent PEG is not necessary at this time. The patient does have a scheduled appointment with GI in April to establish possibly the PEG. Prior to discharge, we discussed thw plan with Dr. Gordon who works with the [facility] and he agreed with the patient's discharge. PHYSICAL EXAMINATION: On the day of discharge, general: A very thin white female, appears older than stated age, small stature lying in bed, appearing in in no acute distress. Eyes: PERRLA. Sclerae anicteric. ENT: Mucous membranes appear moist. Lungs: Clear to auscultation bilaterally. Cardio: Regular rate and rhythm without murmurs, rubs, or gallops appreciated. Abdomen : Normoactive bowel sounds x4 quadrants. Abdomen is soft, nontender, and nondistended. Extremities: No clubbing, cyanosis, or edema. Extremities are thin. Neuro: The patient is alert but not able to participate in neurological exam. Discoordinated movements which appear nonvoluntary in her arms and hands and mouth. DISCHARGE PLAN: Diet: Honey thickened liquids and pureed textured food. Activity: The patient may return to her normal activity as tolerated. Frequent p.o. fluid intake should be encouraged for this patient and her urine output should be monitored. If she does not have urine output in over a 12- hour period, then she should return to care or contact her primary care provider. During her hospital stay, nursing staff did note that the patient did have difficulty maintaining her oral secretions at times which is consistent with her ongoing dysphagia and it may be of benefit for her to use atropine at home which I have prescribed as described below. The patient should return to the hospital should she experience any fever, chills, difficulty breathing, evidence of chest pain. DISCHARGE MEDICATIONS: New medication: Atropine 1% sublingual q.2 hours p.r.n. oral secretions. Continued home medications: 1. Milk of magnesia 30 mL p.o. daily p.r.n. constipation. 2. Benadryl 25 mg p.o. q.4 hours p.r.n. cough. 3. Bacitracin 1 application topically b.i.d. p.r.n. wound care. 4. Zinc oxide 1 application topically b.i.d. p.r.n. rash. 5. Pseudoephedrine 30 mg p.o. q.4 hours p.r.n. congestion. 6. MiraLAX 10 mL p.o. daily. 7. Amantadine 5 mL p.o. b.i.d. 8. Docusate 200 mg p.o. daily p.r.n. constipation. 9. Baclofen 10 mg p.o. b.i.d. 10. Baclofen 15 mg p.o. at bedtime. 11. Amitriptyline 25 mg p.o. at bedtime. 12. Tylenol 650 mg p.o. t.i.d. p.r.n. pain. 13. Hydrocolloid dressing 1 topically every other day. 14. Nutritional supplement 237 mL p.o. daily. CONDITION ON DISCHARGE: Fair. DISPOSITION: Home at the [facility]. TIME SPENT: Approximately 35 minutes was spent on this discharge, approximately half that time was spent at bedside evaluating the patient. ROSA RUBIO [id number]/[facility] #: [id number] [facility] HOSPITALCrystal
--- NOTE | 2019-03-19 17:04 | HP ---
HISTORY AND PHYSICAL: ADDENDUM: FAMILY HISTORY: Noncontributory. SOCIAL HISTORY: No tobacco use, alcohol use or any other illicit substances. 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 [id number]/[facility] #: [id number] NICHOLE
== END 2019-03-06 17:54 | disposition home or self-care (01) ==
LOC: ED 08:57 → MED 14:51
PROVIDERS: ADMIT Internal Medicine; ATTEND Internal Medicine
DX: E86.0 Dehydration (principal); J69.0 Pneumonitis due to inhalation of food and vomit; R62.50 Unspecified lack of expected normal physiological development in childhood; K59.00 Constipation, unspecified; Z79.899 Other long term (current) drug therapy; R94.31 Abnormal electrocardiogram [ECG] [EKG]; H26.9 Unspecified cataract; G25.9 Extrapyramidal and movement disorder, unspecified; R00.0 Tachycardia, unspecified; F79 Unspecified intellectual disabilities
CPT/HCPCS: 36415; 71046; 80048; 80053; 83605; 85025; 87040; 93005; 96361; 96365; 96375; 99284; A9270-GY; G0378; J1885; J2543